=== PATIENT | female | born 1945 | race Caucasian/White ===

== ENCOUNTER 2016-09-24 07:34 | Day surgery (SDC) | payer MEDICARE, BC ==
[~2016-09-24] VITALS: Ht 172.7 cm; Wt 121.6 kg
[2016-09-24 12:49] LABS: BASOPHILS 0.8 % (0.0-2.0); EOSINOPHILS 6.1 % (0-7); HEMATOCRIT 33.2 % (36.0-48.0); HEMOGLOBIN 10.3 g/dL (12-16); IMMATURE GRANULOCYTES 0.3 % (0-5); LYMPHOCYTES 24.8 % (15-50); MCH 29.1 pg (26.0-34.0); MCV 93.8 fL (80.0-100.0); MEAN PLATELET VOLUME 9.4 fL (7.4-10.4); MONOCYTES 6.6 % (2-11); NEUTROPHILS 61.4 % (40-80); PLATELET COUNT 215 10x3/uL (130-400); RBC 3.54 10x6/uL (4.00-5.40); RDW 13.5 % (11.5-14.5); WBC 7.2 10x3/uL (4.8-10.8)
[2016-09-24 13:08] LABS: APTT 26.4 SECONDS (22.8-39.4); INR 0.99 (0.85-1.17); PROTIME 12.9 SECONDS (11.6-15.0)
[2016-09-24 13:14] LABS: CARBON DIOXIDE 23.1 mmol/L (21.0-32.0); CREATININE - SERUM 2.3 mg/dL (0.6-1.3); POTASSIUM - SERUM 5.1 mmol/L (3.5-5.1)
[2016-09-24] MEDS ORDERED: FUROSEMIDE40 MG PO (13:16)
[2016-09-24] MEDS ORDERED: ALENDRONATE SOD70 MG PO (13:16)
[2016-09-24] MEDS ORDERED: COZAAR50 MG PO (13:16)
[2016-09-24] MEDS ORDERED: VYTORIN 10-40 M1 TAB PO (13:17)
[2016-09-24] MEDS ORDERED: COREG25 MG PO (13:17)
[2016-09-24] MEDS ORDERED: NOVOLOG FLEXPEN INJ (13:17)
[2016-09-24] MEDS ORDERED: LANTUS INSULIN10 ML SC (13:18)
[2016-09-24] MEDS ORDERED: MULTIPLE VITAMI1 TA1 PO (13:19)
[2016-09-24 13:30] VITALS: BP 178/93; BMI 40.8
[2016-09-24] MEDS ORDERED: ULTRAM50 MG PO (17:48)
--- NOTE | 2016-09-24 17:54 | NUR ---
BRUIT AND THRILL NOTED TO FISTULA
[2016-09-24 18:36] VITALS: BP 111/53
--- NOTE | 2016-09-24 18:38 | NUR ---
RECEIVED VIA STRETCHER TO ROOM WITH DRY INTACT DRESSING TO LEFT ARM. ON 3L PER NC. FATHER AT BEDSIDE. DENIES NEEDS.
[2016-09-24 20:00] VITALS: BP 125/60
--- NOTE | 2016-09-24 21:01 | NUR ---
PT AWAKE, ALERT, ORIENTED, DENIES PAIN IN LEFT ARM, DENIES ANY DIZZINESS, WEAKNESS, NAUSEA, OR ANY OTHER DIFFICULTIES. PT'S B/P HAS CONSISTENTLY BEEN INCREASING THIS EVENING, PT HAS NOT HAD ANY OF HER HOME MEDICATIONS. I HAVE SPOKEN WITH TOMA WILL, GASTROENTEROLOGY PROFESSOR FOR RENAL WHO AUTHORIZED THE RESTART OF PTS HOME B/P MEDS. WILL CONTINUE TO MONITOR CLOSELY.
[2016-09-25] VITALS: BP 179/77
[2016-09-25 02:59] VITALS: BP 111/53; BMI 40.8
[2016-09-25 04:00] VITALS: BP 193/92
--- NOTE | 2016-09-25 04:24 | NUR ---
PT ACCIDENTALLY PULLED HER IV OUT OF HER RIGHT HAND EARLIER IN THIS SHIFT. I HAVE NOT RESITED PT HAS NO IV MEDICATIONS ORDERED, AND SHE WILL BE D/C THIS AM [place].
--- NOTE | 2016-09-25 05:53 | NUR ---
PT LYING IN BED ON RIGHT SIDE, EYES CLOSED, RESPIRATIONS EVEN AND UNLABORED. FATHER AT BEDSIDE. CONTINUE TO MONITOR CLOSELY.
--- NOTE | 2016-09-25 06:38 | NUR ---
PTS FSBS IS 89, GAVE APPLESAUCE AND JELLO TO COVER PT UNTIL BREAKFAST IS SERVED. PT IS AWAKE, ALERT, ORIENTED, DENIES ANY NEEDS. PT IS ANXIOUS ABOUT BEING ABLE TO GO HOME K[place]. PT DENIES ANY PAIN. CONTINUE TO MONITOR CLOSELY.
--- NOTE | 2016-09-25 07:31 | NUR ---
PT SITTING UP IN BED WITH FATHER AT BEDSIDE. PT HAD LEFT AV FISTULA PLACED YESTERDAY. NO BRUIT OR THRILL NOTED. WITH SWELLING. PRIYA VANG.
--- NOTE | 2016-09-25 07:35 | NUR ---
TALKED WITH DR POWERS SAID TO KEEP PT NPO AND HE WILL COME SEE PT.
[2016-09-25 07:43] VITALS: BP 149/60
--- NOTE | 2016-09-25 08:03 | NUR ---
SCD'S ON BILATERAL LE
[2016-09-25 10:10] VITALS: Ht 172.7 cm; Wt 121.6 kg
[2016-09-25 11:17] VITALS: BP 171/81
--- NOTE | 2016-09-25 12:06 | NUR ---
STILL NO SIGN OF DR POWERS. PT SAID THAT DR CHIN CAME AND SAW HER AND ASSESSED HER FISTULA AND SAID THAT WE WOULD WAIT TO SEE WHAT DR POWERS SAID BEFORE WE SENT HER HOME. STILL KEEPING PT NPO. PT DISCHARGE SUMMARY IS COMPLETE PER DR CHIN. PT FATHER IS BECOMING IMPATIENT. KEEPING FAMILY AND PT UPDATED MUCH POSSIBLE.
--- NOTE | 2016-09-25 13:07 | NUR ---
FAMILY UPSET THAT DR POWERS NOT HERE TO SEE HER YET. DEEPAK CALLED DR POWERS OFFICE AND SPOKE TO CELESTINE. CELESTINE SAID HE WAS WITH A PT AT THE MOMENT BUT SHE WOULD TALK TO HIM WHEN HE CAME OUT.
--- NOTE | 2016-09-25 13:23 | NUR ---
DR POWERS HERE TO SEE PT. LISTENED TO FISTULA WITH DOPPLER. SAID THERE WAS A FEBILE FLOW. GAVE OK TO DC HOME. PUT IN ORDERS. WANTS TO SEE IN OFFICE NEXT WEEK.
--- NOTE | 2016-09-25 13:43 | NUR ---
WENT OVER DC PAPERWORK WITH PT PT VERBALIZES UNDERSTANDING.
--- NOTE | 2016-09-27 10:18 | OP ---
PATIENT NAME: SHANTAL COOLEY MEDICAL RECORD: [id number] :47 LOCATION:D.OPS ADMISSION DATE: SURGEON: SUMAN POWERS MD DATE OF OPERATION: 09/24/2016 REFERRING PHYSICIAN: Dr. Nigel Bennett. PREOPERATIVE DIAGNOSIS: Chronic kidney disease V. POSTOPERATIVE DIAGNOSIS: Chronic kidney disease V. OPERATION PERFORMED: Creation of a left distal brachial artery to cephalic vein AV fistula. SURGEON: Suman Powers MD ANESTHESIA: General with LMA per SUPERVISOR LIQUEFACTION. PREOPERATIVE NOTE: Ms. Cooley is a 71-year-old obese diabetic white female from [place], who has chronic kidney disease and Dr. Bennett anticipate she will require hemodialysis. She was referred to me so that an AV fistula could be created with plenty of time for it to mature before it might be needed. She is brought to the operating room at this time to try to make a fistula in her left arm. Under general anesthesia, she was prepped and draped in sterile manner. I examined her arm with ultrasound after applying nitroglycerin paste and I used a Madhavi drain as a proximal venous tourniquet. She seemed to have a satisfactory cephalic vein in the antecubital space and upper arm. The basilic vein was smaller than I expected and I decided to go ahead with a brachial to cephalic fistula. A transverse incision was made just below the antecubital crease. The vessels were exposed and dissected branches or tributaries of the vein were ligated and divided as needed using Vicryl ties and the median antebrachial vein and median cubital vein were actually used as the conduit to the cephalic vein. The vessel was flushed with heparinized saline and treated with topical papaverine and distended with hydrostatic pressure. The vein was shortened slightly and beveled. A vascular clamp was used proximally to prevent bleeding. The brachial artery was controlled with Silastic loops and the proximal radial artery and ulnar artery were also individually controlled with Silastic loops. The vein really reached best down on the most distal brachial artery and I did not try to create a PRA type fistula. The patient was given 2000 units of heparin and after an adequate circulation time, a small arteriotomy was made and that vessel flushed with heparinized saline proximally and distally. The vein was then anastomosed end-to-side to the side of the artery with running 7-0 Prolene and when completed, the anastomosis was hemostatic and excellent flow developed immediately with release of the occluding loops and clamps. The wound was irrigated with Ancef/gentamicin solution and infiltrated with 0.25% Marcaine without epinephrine. The wound was closed with interrupted inverted 3-0 Vicryl and the skin approximated and glued with Dermabond. I did not use an intracuticular suture or any other skin sutures. The wound was dressed with Maxorb Ag, Tegaderm and Cavilon skin prep and the patient then awakened and in stable condition taken to the recovery room. Blood loss during the operation was trivial and unreplaced. All sponges, instruments and needles were accounted for. No drain was used and no surgical OPERATIVE REPORT [id number] SHANTAL COOLEY specimen was submitted for histopathology. PLAN: I will plan for the patient to leave the original operative dressing intact until she returns to see me in my office next week. She is given a prescription for 30 tramadol 50 mg tablet, she can take 1 or if needed 2 p.o. q. 4 hours p.r.n. pain. TRANSINT:[id number] Voice Confirmation ID: [id number] DOCUMENT ID: [id number] SUMAN POWERS MD at 1018 CC: GEE BENNETT MD [id number] DICTATION DATE: 09/24/16 175 SEED DISTRICT SALES MANAGER: 09/25/[address] [facility] 09/25/16 [facility] [address] [place] [address]
== END 2016-09-25 13:43 | disposition home or self-care (01) ==
LOC: D.OPS 07:34 → D.M2 18:33 → D.OPS 09-25 13:43
PROVIDERS: Internal Medicine Nephrology
DX: E11.22 Type 2 diabetes mellitus with diabetic chronic kidney disease (principal); N18.5 Chronic kidney disease, stage 5; Z79.4 Long term (current) use of insulin; E66.9 Obesity, unspecified; Z79.899 Other long term (current) drug therapy; Z68.41 Body mass index [BMI] 40.0-44.9, adult

== ENCOUNTER 2017-03-07 05:20 | Day surgery (SDC) | payer MEDICARE, BC ==
[2017-03-06 15:59] LABS: BASOPHILS 0.6 % (0-2); EOSINOPHILS 5.4 % (0-7); HEMATOCRIT 30.3 % (36.0-48.0); HEMOGLOBIN 9.6 g/dL (12-16); IMMATURE GRANULOCYTES 0.2 % (0-5); LYMPHOCYTES 20.9 % (15-50); MCHC 31.7 g/dL (31.0-37.0); MCV 94.7 fL (80.0-100.0); MEAN PLATELET VOLUME 10.3 fL (7.4-10.4); MONOCYTES 4.5 % (2-11); NEUTROPHILS 68.4 % (40-80); PLATELET COUNT 244 10x3/uL (130-400); RDW 14.6 % (11.5-14.5); WBC 8.7 10x3/uL (4.8-10.8)
[2017-03-06 16:01] LABS: ANION GAP 17.4 mmol/L (8-16); CARBON DIOXIDE 26.5 mmol/L (21.0-32.0); CREATININE - SERUM 4.6 mg/dL (0.6-1.3); POTASSIUM - SERUM 4.9 mmol/L (3.5-5.1)
[2017-03-06 16:05] LABS: INR 1.04 (0.85-1.17); PROTIME 13.5 SECONDS (11.6-15.0)
[~2017-03-07] VITALS: Ht 172.7 cm; Wt 113.4 kg
[~2017-03-07 05:20] MED LIST: ALENDRONATE SOD70 MG PO; ASPIRIN EC81 M1 PO; COREG25 MG PO; COZAAR50 MG PO; FUROSEMIDE40 MG PO; LANTUS INSULIN10 ML SC; MULTIPLE VITAMI1 TA1 PO; NOVOLOG FLEXPEN INJ; ROCALTROL0.5 MCG PO; ULTRAM50 MG PO; VYTORIN 10-40 M1 TAB PO
[2017-03-07 07:11] VITALS: Ht 172.7 cm; Wt 113.4 kg
[2017-03-07] MEDS ORDERED: HYDROCODON-ACE1 EAC7 PO (11:30)
--- NOTE | 2017-03-07 13:42 | NUR ---
1210 DC TEACHING COMPLETE LT ARM IN SLING PT STATES STARTING TO FEEL IN SHOULDER. FISTULA REMAINS COVERED W/OPSITE AND THRILL AUSCULTATED. PIV REMOVED W/CATHETER TIP INTACT. 1235 PT DC VIA WC W/DAD DRIVING.
--- NOTE | 2017-03-10 21:36 | OP ---
PATIENT NAME: SHANTAL COOLEY MEDICAL RECORD: [id number] :47 LOCATION:D.OPS ADMISSION DATE: SURGEON: SUMAN POWERS MD DATE OF OPERATION: 03/07/2017 PREOPERATIVE DIAGNOSIS: Chronic kidney disease stage V. POSTOPERATIVE DIAGNOSIS: Chronic kidney disease stage V. OPERATION PERFORMED: Implantation of a left upper extremity brachial artery to basilic vein loop PTFE AV fistula. SURGEON: Suman Powers MD. ANESTHESIA: Axillary block plus general with LMA per COMPUTER NETWORK SUPPORT SPECIALIST. REFERRING PHYSICIAN: Nigel Bennett MD. PREOPERATIVE NOTE: Ms. Cooley is a very pleasant 71-year-old white female patient with chronic kidney disease and will need to start dialysis soon. She is brought to the operating room for implantation of a graft. Under general anesthesia and with a regional block on board, the patient was placed in supine position and the left arm prepped and draped in sterile manner. I examined her with ultrasound after applying nitroglycerin paste and using a Madhavi drain as a proximal venous tourniquet. The patient did not have any adequate veins in the forearm or really in the antecubital area to construct a fistula that I would have confidence in its maturing rapidly and I went on with a graft implantation. I made an incision above the elbow and dissected the brachial artery from surrounding tissues. It was treated with topical papaverine and controlled proximally and distally with Silastic loops. Another longitudinal incision was made just below the axilla and the basilic vein at that level exposed. This was actually just lateral to its confluence with the brachial veins. It was also controlled with Silastic loops and treated with topical papaverine. Because the brachial artery was small, I chose a 4-7 tapered [place] Propaten PTFE graft. The arterial end was shortened a bit and beveled. Then, the artery was occluded and an arteriotomy made and the artery flushed proximally and distally with heparinized saline. The anastomosis was then done with running 6-0 Prolene. The suture line was treated with Evicel and after 2 minutes, the occluding loops were released and the flow restored in the brachial artery and the suture line was hemostatic with a good pulse in the graft, which was of course clamped. There was good Doppler flow in the brachial artery proximal and distal to the anastomosis. The graft was then placed in a very superficial subcutaneous tunnel and brought back to the proximal incision where it was shortened and beveled, and anastomosed end-to-side to the vein with running 6-0 Prolene, again with just regional heparinization. When that anastomosis was complete, it too was treated with topical Evicel and after 2 minutes, the clamps and loops were released, and excellent flow was immediately established in the new AV graft. Hemostasis was excellent. The wounds were irrigated with Ancef/gentamicin solution. They were closed with interrupted inverted 3-0 Vicryl and running intracuticular 4-0 Monocryl and Dermabond glue. Dressings of Maxorb Ag, Tegaderm and Cavilon skin prep were applied. She was awakened and in stable condition taken to the recovery room. Blood loss during the operation was trivial. All sponges, instruments, and OPERATIVE REPORT [id number] LENORASHANTAL DELORES needles were accounted for. No drain was used and no surgical specimen was submitted for histopathology. PLAN: I plan for Ms. Cooley to go home to [place] today. She will follow up with me in my office next week. She is to leave the original operative dressings intact until that time. She is to resume activities as tolerated. She is to continue her home medications and diet. She may wear a sling to help her control the left upper extremity until her block wears off and motor function returns. I do not want her to wear a sling more than 24 hours. She is given a prescription for Pomerene 5/325, #20 one p.o. q.4 hours p.r.n. pain, no refills. TRANSINT:[id number] Voice Confirmation ID: [id number] DOCUMENT ID: [id number] SUMAN POWERS MD at 2136 CC: GEE BENNETT MD [id number] DICTATION DATE: 03/07/17 1142 BARROW WORKER: 03/07/17 1617 [facility] 03/07/17 [place] [id number] [place] [id number]
== END 2017-03-07 12:35 | disposition home or self-care (01) ==
LOC: D.OPS 05:20 → D.PAN 07:30 → D.OPS 08:30 → D.PAN 08:30 → D.OPS 12:35
PROVIDERS: Surgery
DX: I12.0 Hypertensive chronic kidney disease with stage 5 chronic kidney disease or end stage renal disease (principal); N18.5 Chronic kidney disease, stage 5; Z01.810 Encounter for preprocedural cardiovascular examination; Z01.812 Encounter for preprocedural laboratory examination; Z01.811 Encounter for preprocedural respiratory examination

== ENCOUNTER 2019-10-21 18:32 | Emergency (ER) | payer MEDICARE, BC ==
[~2019-10-21] VITALS: Ht 172.7 cm; Wt 113.6 kg
[~2019-10-21 18:32] MED LIST changes: +HYDROCODON-ACE1 EAC7 PO
[2019-10-21 18:35] VITALS: Ht 172.7 cm; Wt 113.6 kg
[2019-10-21 19:21] LABS: WBC 28.4 10x3/uL (4.8-10.8)
[2019-10-21 19:22] LABS: HEMATOCRIT 24.9 % (36.0-48.0); HEMOGLOBIN 7.4 g/dL (12-16); MCH 33.6 pg (26.0-34.0); MCHC 29.7 g/dL (31.0-37.0); MCV 113.2 fL (80.0-100.0); MEAN PLATELET VOLUME 9.3 fL (7.4-10.4); PLATELET COUNT 275 10x3/uL (130-400); RDW 14.4 % (11.5-14.5)
[2019-10-21 19:26] LABS: CALC OSMOLALITY 294 mosm/kg (275-300); CALCIUM 7.5 mg/dL (8.5-10.1); CHLORIDE - SERUM 97 mmol/L (98-107); CREATININE - SERUM 10.8 mg/dL (0.6-1.3); GLUCOSE 186 mg/dL (74-106); POTASSIUM - SERUM 5.6 mmol/L (3.5-5.1); SODIUM 136 mmol/L (136-145); UREA NITROGEN 62 mg/dL (7-18); eGFR NON AFRICAN AMERICAN 4 mL/min (90-120)
[2019-10-21 19:40] LABS: LYMPHOCYTES 9 % (15-50); MONOCYTES 8 % (2-11); NEUTROPHILS 71 % (40-80); PLATELET ESTIMATE NORMAL
[2019-10-21 19:41] LABS: ALKALINE PHOSPHATASE 153 U/L (30-120); ALT (SGPT) 19 U/L (10-68); BILIRUBIN - TOTAL 0.49 mg/dL (0.2-1.3); CKMB 0.7 U/L (0.0-3.6); CREATINE KINASE 254 UL (21-215); MAGNESIUM - SERUM 2.1 mg/dL (1.8-2.4); PRO BNP 12286 pg/mL (0-125); PROTEIN - SERUM 6.5 g/dL (6.4-8.2); TROPONIN-I < 0.017 ng/mL (0.000-0.060)
[2019-10-21 20:40] LABS: BILIRUBIN NEGATIVE (NEGATIVE); GLUCOSE NEGATIVE (NEGATIVE); KETONE NEGATIVE (NEGATIVE); NITRITE POSITIVE (NEGATIVE); UROBILINOGEN NORMAL (NORMAL)
[2019-10-21 20:41] LABS: RED CELLS - URINE 25-50 /hpf (0-5); WHITE CELLS - URINE >50 /hpf (NEGATIVE)
[2019-10-21 20:42] LABS: BACTERIA MANY /hpf (NEGATIVE); EPITHELIAL CELLS NSEEN /hpf (0-5)
[2019-10-21 22:07] VITALS: BP 98/34
== END 2019-10-21 22:07 | disposition other institution (70) ==
LOC: D.ER 18:32
PROVIDERS: Family Medicine
DX: N12 Tubulo-interstitial nephritis, not specified as acute or chronic (principal); I12.9 Hypertensive chronic kidney disease with stage 1 through stage 4 chronic kidney disease, or unspecified chronic kidney disease; E11.22 Type 2 diabetes mellitus with diabetic chronic kidney disease; N18.9 Chronic kidney disease, unspecified; N20.1 Calculus of ureter; E11.40 Type 2 diabetes mellitus with diabetic neuropathy, unspecified; Z79.4 Long term (current) use of insulin

== ENCOUNTER 2019-11-06 12:00 | Inpatient (IN) | payer MEDICARE, BC ==
[2019-11-06] VITALS (12 sets, daily range): BP systolic 78–124; BP diastolic 46–68; BMI 35.7
[~2019-11-06] VITALS: Ht 172.7 cm; Wt 109.2 kg
--- NOTE | ~2019-11-06 | EC ---
PATIENT:SHANTAL COOLEY DATE OF SERVICE: 11/06/19 SEX: F MEDICAL RECORD: [id number] DATE OF : [birth year] LOCATION:[facility] D230 AGE OF PATIENT: 74 ADMISSION DATE: 11/06/19 REFERRING PHYSICIAN: INTERPRETING PHYSICIAN: VETO YOUNGBLOOD MD ECHOCARDIOGRAM REPORT ECHO CHARGES 4 ECHO COMPLETE Date: 11/07/19 CLINICAL DIAGNOSIS: ELEVATED TROP ECHOCARDIOGRAPHIC MEASUREMENTS (adult normal given) AC root (d.<3.7cm) 2.5 cm LV Septum d (<1.2 cm> 1.1 cm Valve Excursion 1.6 cm LV Septum (systole) 1.9 cm Left Atria (s.<4.0cm> 4.1 cm LVPW d(<1.2cm) 1.1 cm RV (d.<2.3cm) 3.0 cm LVPW (sytole) 1.2 cm LV diastole(<5.6CM) 4.5 cm MV E-F(>70mm/sec) cm LV systole 3.1 cm LVOT Diameter 1.5 cm MV exc.(>10mm) cm Est.ejection fraction (50-75%) % DOPPLER: LVIT cm/sec A 76 cm/sec E 103 cm/sec LA cm/sec RVSP 16.1 mmHg LVOT 154 cm/sec AOP1/2T m/s Asc. Ao 184 cm/sec RVOT 75 cm/sec RA cm/sec PA 103 cm/sec AV Gradient Peak 13.6 mmHg AV Mean 6.4 mmHg AV Area 1.4 cm MV Gradient Peak 7.7 mmHg MV Mean 3.9 mmHg MV Area cm COMMENTS: Automobile Upholsterer: Denis MORALES Rabble Furnace Tender: 4 Dr. Youngblood TAPE# PACS Pericardial Effusion Y DATE OF SERVICE: 11/07/2019 DATE OF STUDY: 11/07/2019. PROCEDURE: Transthoracic echocardiogram. Left ventricle has moderate to severe concentric left ventricular hypertrophy with an ejection fraction of 60% to 65% with Inflow characteristics consistent with diastolic dysfunction. ECHOCARDIOGRAM REPORT [id number] SHANTAL COOLEY FINDINGS: 1. The left atrium is mildly enlarged with normal function. 2. The aortic valve is normal structure and function. 3. The mitral valve has normal structure and function. Mild mitral regurgitation. Tricuspid valve is normal in structure and function and mild tricuspid regurgitation. The RVSP is normal. 4. The right atrium is mildly dilated and there is right ventricular hypertrophy with normal function. 5. The right atrium is normal size and function. 6. The pericardium exhibits a eeyi-ci-slhyhgts effusion. There are no signs of tamponade. IMPRESSION: Hypertensive heart disease with ztnk-oa-zxjtjpyg pericardial effusion, no evidence of tamponade. Depending on clinical situation, a limited echo for the pericardial effusion would be reasonable in 1-2 days. TRANSINT:[id number] Voice Confirmation ID: [id number] DOCUMENT ID: [id number] VETO YOUNGBLOOD MD CC: [id number] DICTATION DATE: 11/07/19 1601 AUTOMATION CONTROL INTEGRATOR: 11/07/19 210 ADM IN [facility] [address] [place] [id number]
--- NOTE | 2019-11-06 12:10 | NUR ---
BLOOD CULTURE X 2 AT [facility]. LAB WORK FROM [facility]: CR 7.9 LACTIC ACID 3.5 (NO SEPSIS SUSPECTED PER YANIQUE LARA) BUN 34 7 HGB PREVIOUS 7.6 1 WEEK AGO
[2019-11-06 13:15] LABS: BASOPHILS 0.3 % (0-2); EOSINOPHILS 0.1 % (0-7); HEMATOCRIT 24.8 % (36.0-48.0); IMMATURE GRANULOCYTES 0.1 % (0-5); LYMPHOCYTES 24.3 % (15-50); MCH 33.5 pg (26.0-34.0); MCHC 29.8 g/dL (31.0-37.0); MCV 112.2 fL (80.0-100.0); MEAN PLATELET VOLUME 9.4 fL (7.4-10.4); MONOCYTES 8.3 % (2-11); NEUTROPHILS 66.9 % (40-80); PLATELET COUNT 327 10x3/uL (130-400); RBC 2.21 10x6/uL (4.00-5.40); RDW 15.1 % (11.5-14.5); WBC 8.7 10x3/uL (4.8-10.8)
[2019-11-06 13:25] LABS: HEMOGLOBIN 7.4 g/dL (12-16)
[2019-11-06 13:34] LABS: CALC OSMOLALITY 279 mosm/kg (275-300); CALCIUM 8.1 mg/dL (8.5-10.1); CARBON DIOXIDE 27.1 mmol/L (21.0-32.0); CHLORIDE - SERUM 95 mmol/L (98-107); CREATININE - SERUM 8.1 mg/dL (0.6-1.3); GLUCOSE 191 mg/dL (74-106); POTASSIUM - SERUM 4.9 mmol/L (3.5-5.1); SODIUM 133 mmol/L (136-145); UREA NITROGEN 37 mg/dL (7-18); eGFR NON AFRICAN AMERICAN 5 mL/min (90-120)
[2019-11-06 13:37] LABS: APTT 39.3 SECONDS (22.8-39.4); INR 1.66 (0.85-1.17); PROTIME 19.4 SECONDS (11.6-15.0)
[2019-11-06 13:46] LABS: ALBUMIN 2.6 g/dL (3.4-5.0); ALKALINE PHOSPHATASE 137 U/L (30-120); ALT (SGPT) 736 U/L (10-68); BILIRUBIN - TOTAL 0.45 mg/dL (0.2-1.3); CKMB 0.9 U/L (0.0-3.6); CREATINE KINASE 47 UL (21-215); PROTEIN - SERUM 7.1 g/dL (6.4-8.2)
[2019-11-06 13:50] LABS: TROPONIN-I 0.549 ng/mL (0.000-0.060)
--- NOTE | 2019-11-06 14:56 | NUR ---
1400 PT RECIEVED AND ADMISSION ASSESMENT DONE.. PT IS AWAKE ALERT AND ORIENTED.. DENIES PAIN AT THIS TIME.. STATES THAT SHE HAS BEEN SOB AND WEAK AT HOME, SHE MISSED DIALYSIS THIS AM IN [place] .. DIALYSIS WAITING FOR HER AT BEDSIDE ON ARRIVAL TO DIALIZE.. PT HAS A FISTULA IN HER RIGHT UPPER ARM.. THERE IS A LEFT PIV IN THE WRIST SALINE LOCKED .. 1500 ASSESMENT IS COMPLETE AND DIALYSIS STARTED.. DIALYSIS UNIT IN [place] CALLED TO FAX LIST OF PATIENTS HOME MEDS..
--- NOTE | 2019-11-06 15:47 | NUR ---
1515 PRBC STARTED WHILE ON DIALYSIS AND RUN IN BY DIALYSIS NURSE.. 1530 [facility] CALLED AGAIN TO FAX PT MED LIST
--- NOTE | 2019-11-06 18:18 | NUR ---
1820 DIALYSIS COMPLETESEE DIALYSIS FLOW SHEET FOR VS. ETC..
--- NOTE | 2019-11-06 18:24 | NUR ---
BLOOD DRAWN FOR ORDERED LAB BY DIALYSIS NURSE FROM FISTULA SITE
--- NOTE | 2019-11-06 19:00 | NUR ---
REPORT RECEIVED ASSESSMENT COMPLETE. PT DENIES PAIN OR SOB STATES "I FEEL SO MUCH BETTER" CM READING SR BBB ALARMS ON AND AUDIBLE. BED LOW POSITION SIDE RAILS UP CL IN REACH WILL CONTINUE TO MONITOR
[2019-11-06 20:24] LABS: CKMB 0.5 U/L (0.0-3.6); CREATINE KINASE 41 UL (21-215)
[2019-11-06 20:30] LABS: TROPONIN-I 0.413 ng/mL (0.000-0.060)
--- NOTE | 2019-11-06 21:25 | NUR ---
DR ELIAS HERE NEW ORDERS OK TO HOLD LANTUS UNTIL TOMORROW TREAT PER SS
--- NOTE | 2019-11-06 23:00 | NUR ---
REASSESSMENT COMPLETE NO CHANGES.
[2019-11-07] VITALS (24 sets, daily range): BP systolic 78–106; BP diastolic 37–84
--- NOTE | 2019-11-07 01:30 | NUR ---
PT RESTING QUIETLY WITH EYES CLOSED VSS CPOC
[2019-11-07] MEDS ORDERED: ELIQUIS2.5 MG PO (01:31)
[2019-11-07] MEDS ORDERED: RENVELA0.8 GM PO (01:32)
[2019-11-07] MEDS ORDERED: TUMS X-STR300 MG PO (01:33)
[2019-11-07] MEDS ORDERED: NEPHRO-VITE RX1 TAB PO (01:34)
[2019-11-07] MEDS ORDERED: PLAVIX75 MG PO (01:35)
--- NOTE | 2019-11-07 03:00 | NUR ---
REASSESSMENT COMPLETE. PT DENIES NEEDS CPOC.
[2019-11-07 03:30] LABS: BASOPHILS 0.7 % (0-2); EOSINOPHILS 0.8 % (0-7); HEMATOCRIT 26.4 % (36.0-48.0); HEMOGLOBIN 7.9 g/dL (12-16); IMMATURE GRANULOCYTES 0.2 % (0-5); LYMPHOCYTES 23.8 % (15-50); MCH 32.4 pg (26.0-34.0); MCHC 29.9 g/dL (31.0-37.0); MCV 108.2 fL (80.0-100.0); MEAN PLATELET VOLUME 9.6 fL (7.4-10.4); NEUTROPHILS 64.5 % (40-80); PLATELET COUNT 331 10x3/uL (130-400); RBC 2.44 10x6/uL (4.00-5.40); RDW 19.1 % (11.5-14.5); WBC 8.5 10x3/uL (4.8-10.8)
[2019-11-07 04:06] LABS: ALBUMIN 2.4 g/dL (3.4-5.0); ALKALINE PHOSPHATASE 122 U/L (30-120); ALT (SGPT) 604 U/L (10-68); BILIRUBIN - TOTAL 0.64 mg/dL (0.2-1.3); CALCIUM 8.1 mg/dL (8.5-10.1); CARBON DIOXIDE 29.3 mmol/L (21.0-32.0); CHLORIDE - SERUM 98 mmol/L (98-107); CKMB 0.4 U/L (0.0-3.6); CREATINE KINASE 32 UL (21-215); CREATININE - SERUM 6.1 mg/dL (0.6-1.3); GLUCOSE 170 mg/dL (74-106); PHOSPHOROUS 6.2 mg/dL (2.5-4.9); PROTEIN - SERUM 6.6 g/dL (6.4-8.2); SODIUM 136 mmol/L (136-145); eGFR NON AFRICAN AMERICAN 7 mL/min (90-120)
[2019-11-07 04:07] LABS: CALC OSMOLALITY 280 mosm/kg (275-300); TROPONIN-I 0.301 ng/mL (0.000-0.060); UREA NITROGEN 27 mg/dL (7-18)
[2019-11-07 08:23] LABS: CKMB 0.4 U/L (0.0-3.6); CREATINE KINASE 29 UL (21-215)
[2019-11-07 08:24] LABS: TROPONIN-I 0.249 ng/mL (0.000-0.060)
--- NOTE | 2019-11-07 10:07 | NUR ---
0700 REPORT RECIEVED AND CARE ASSUMED OF PATIENT..SEE FLOW SHEET FOR ASSESMENT FINDINGS 0800 RENAL SELF SEALING FUEL TANK BUILDER IN TO SEE PATIENT.. 0830 DIET SERVED AND PATIENT IS FEEDING SELF [address] ELIAS IN TO SEE PT UPDATE IS GIVEN..
--- NOTE | 2019-11-07 10:14 | NUR ---
DR YOUNGBLOOD NOTIFIED OF CONSULT, STATED TO ORDER AN ECHO AND HE WILL BE BY TO SEE PT.
--- NOTE | 2019-11-07 12:18 | NUR ---
1100 PT IS SLEEPING AT THIS TIME.. 1200 FSBS DONE INSULIN COVER LUNCH SERVED FEEDING SELF..
--- NOTE | 2019-11-07 13:09 | NUR ---
1300 US HERE TO DO ECHO
--- NOTE | 2019-11-07 14:35 | NUR ---
1400 US COMPLETE TECH ATTEMPTING TO CONTACT DR DRUMMOND.. PT IS SLEEPING
--- NOTE | 2019-11-07 14:49 | NUR ---
1445 BP LOW PATIENT STATES IT IS ALWAYS LOW..CUFF REPOSITIONED AND PT REPOSITIONED IN THE BED.. BP 101 SYS.. REFUSES BATH AT THIS TIME..
--- NOTE | 2019-11-07 15:02 | NUR ---
1500 PT REFUSES BATH AT THIS TIME.. I AND O DONE
--- NOTE | 2019-11-07 17:48 | NUR ---
1630 MEDS GIVEN AND FSBS DONE 2 UNITS INSULIN COVER 1700 DIET SERVED AND PT IS FEEDING SELF.. 1730 CONTINUES TO FEED SELF
--- NOTE | 2019-11-07 19:00 | NUR ---
Report received from off going nurse. Pt is sitting up in bed with eyes closed. No needs voiced at this time. Initial assessment completed, see flowsheet for details. No s/s of distress noted. Will continue to monitor.
--- NOTE | 2019-11-07 21:00 | NUR ---
Pt is laying in bed with eyes closed. No needs voiced at this time. No s/s of distress. Will continue to monitor.
--- NOTE | 2019-11-07 23:00 | NUR ---
Reassessment completed, see flowsheet for details. Pt is laying in bed with eyes closed at this time. No needs voiced. No s/s of distress. Will continue to monitor.
[2019-11-08] VITALS (21 sets, daily range): BP systolic 87–1331; BP diastolic 49–81; Ht 172.7 cm; Wt 109.2 kg
--- NOTE | 2019-11-08 01:00 | NUR ---
Pt is laying in bed with eyes closed. No needs voiced. NO s/s of distress. Will continue to monitor.
--- NOTE | 2019-11-08 03:00 | NUR ---
Reassessment completed, see flowsheet for details. Pt is laying in bed with eyes closed. No needs voiced. No s/s of distress noted. Will continue to monitor.
[2019-11-08 03:58] LABS: BASOPHILS 0.9 % (0-2); EOSINOPHILS 2.1 % (0-7); HEMATOCRIT 24.1 % (36.0-48.0); IMMATURE GRANULOCYTES 0.3 % (0-5); LYMPHOCYTES 30.4 % (15-50); MCH 32.3 pg (26.0-34.0); MCHC 30.3 g/dL (31.0-37.0); MCV 106.6 fL (80.0-100.0); MEAN PLATELET VOLUME 9.5 fL (7.4-10.4); MONOCYTES 11.6 % (2-11); NEUTROPHILS 54.7 % (40-80); PLATELET COUNT 303 10x3/uL (130-400); RBC 2.26 10x6/uL (4.00-5.40)
[2019-11-08 04:01] LABS: HEMOGLOBIN 7.3 g/dL (12-16)
[2019-11-08 04:04] LABS: ANION GAP 13.4 mmol/L (8-16); CALCIUM 8.3 mg/dL (8.5-10.1); CARBON DIOXIDE 28.6 mmol/L (21.0-32.0); PHOSPHOROUS 6.4 mg/dL (2.5-4.9)
--- NOTE | 2019-11-08 07:00 | NUR ---
0700 AWAKE ALERT ASSESSMENT COMPLETE REPOSITIONED IN BED
[2019-11-08 07:45] LABS: % SATURATION 24 % (15-55); IRON 42 ug/dl (35-150); TOTAL IRON BIND CAPACITY 173 ug/dl (260-445); UNSAT IRON BIND CAPACITY 131 ug/dl (150-375)
[2019-11-08 08:16] LABS: AMYLASE - SERUM 42 U/L (25-115); LIPASE 293 U/L (73-393); VANCOMYCIN - RANDOM 9.7 ug/mL (10.0-20.0)
[2019-11-08 08:21] LABS: FERRITIN 5173 ng/mL (3-244)
--- NOTE | 2019-11-08 10:22 | NUR ---
4592 DR ELIAS ROUNDING ON PATIENT ORDER TO TRANSFUSE I UNIT PRBC NOTED
--- NOTE | 2019-11-08 10:23 | NUR ---
0900 STARTED PRBC TO RIGHT WRIST IV SITE
--- NOTE | 2019-11-08 10:24 | NUR ---
1000 IV SITE THAT HAS BLOOD INFUSING IS LEAKING. STOPPED TRANSFUSION AND RESTARTED IV TO RIGHT HAND WITH 20 GAUGE ANGIOCATH. BLOOD INFUSION RESTARTED TO NEW IV SITE LEFT ARM RESERVED NOTED
--- NOTE | 2019-11-08 10:28 | NUR ---
1016 PRESSER ALL AROUND PRESENT FOR ABDOMINAL ULTRA SOUND. PT HAS REMAINED NPO SINCE MIDNIGHT HELD BREAKFAST TRAY THIS AM
--- NOTE | 2019-11-08 10:29 | NUR ---
1029 DR FOSTER AT BEDSIDE
--- NOTE | 2019-11-08 17:33 | NUR ---
1200 DIALYSIS INITIATED UNIT PRBC COMPLETED
--- NOTE | 2019-11-08 17:35 | NUR ---
1400 DIALYSIS COMPLETE PULLED OFF 2L
--- NOTE | 2019-11-08 17:35 | NUR ---
1700 AWAKE ALERT SITTING IN BED HAVING DINNER VOICES NO C/O PAIN
--- NOTE | 2019-11-08 19:00 | NUR ---
Report received from off going nurse. Pt is sitting up in bed watching tv at this time. Asked pt about getting a bath and she stated she didnt feel like it at this time. I asked if I could at least change her sheets for her and she said yes. Sheets changed. No further needs needed at this time. No s/s of distress. Will continue to monitor.
--- NOTE | 2019-11-08 20:15 | MORECARE ---
CASE MANAGEMENT DISCHARGE SUMMARY PATIENT: SHANTAL COOLEY UNIT: [id number] ADM DATE: 11/06/19 AGE: 74 : 47 SEX: F ROOM/BED: D.2301 AUTHOR: JOSH LILLY PHYSICIAN: REFERRING PHYSICIAN: CARLITOS ELIAS MD DATE OF SERVICE: 11/08/19 Discharge Plan Patient Name: SHANTAL COOLEY [facility] : 1945 Planned Disposition: Home Anticipated Discharge Date: Discharge Date: Expected LOS: Initial Reviewer: [email or web address] Initial Review Date: 11/06/2019 Generated: 11/08/19 9:15 pm Patient Name: SHANTAL COOLEY Page [id number] at 2014 All edits/amendments must be made on the electronic document DICTATION DATE: 11/08/192014 NATURAL SCIENCES MANAGER: JEFF 11/08/192014 RPT#: [id number] DC DATE: STATUS: ADM IN [facility] [address] [place] [address] END OF REPORT
--- NOTE | 2019-11-08 20:22 | MORECARE ---
CASE MANAGEMENT DISCHARGE SUMMARY PATIENT: SHANTAL COOLEY UNIT: [id number] ADM DATE: 11/06/19 AGE: 74 : 47 SEX: F ROOM/BED: D.2301 AUTHOR: JOSH LILLY PHYSICIAN: REFERRING PHYSICIAN: CARLITOS DURAN MD DATE OF SERVICE: 11/08/19 Discharge Plan Patient Name: SHANTAL COOLEY Facility: [facility]:[place] : 1945 Planned Disposition: Home Anticipated Discharge Date: Discharge Date: Expected LOS: Initial Reviewer: [email or web address] Initial Review Date: 11/06/2019 Generated: 11/08/19 9:21 pm Comments DCP- Discharge Planning Updated by [email or web address]: Amanda Villarreal on 11/08/19 7:[address] Patient Name: SHANTAL COOLEY Admission Status: ER Accout number: [id number] Admission Date: 11-06-2019 : 1945 Admission Diagnosis: Attending: Carlitos Duran Current LOS: 2 Anticipated DC Date: Planned Disposition: Home Primary Insurance: MEDICARE A & B Discharge Planning Comments: CM met with patient to complete initial dc planning assessment. CM educated patient on the CM role and verbal consent given by patient to complete assessment. Patient lives at home alone. At discharge patient plans to return home and feels this is a safe discharge. Patient has dialysis [facility] in [place] @ 0700. Shelia Cornelius has been notified of patient's admission. CM discussed availability of home health, rehab services, and medical equipment. Patient denied known discharge needs at this time. CM will continue to follow and will assist as needed with dc plans/needs. Cattle Dehorner: Amanda Villarreal DCPIA - Discharge Planning Initial Assessment Updated by [email or web address]: Amanda Villarreal on 11/08/19 8:16 pm * Is the patient Alert and Oriented? Yes * How many steps to enter\exit or inside your home? * PCP JUAN WALKER * Pharmacy [facility] * Preadmission Environment Home Alone * ADLs Independent * Equipment None * List name and contact numbers for known caregivers / representatives who currently or will assist patient after discharge: TIKI COOLEY - FATHER - [phone] * Verbal permission to speak to the caregivers and representatives has been obtained from the patient. Yes * Community resources currently utilized None * Additional services required to return to the preadmission environment? No * Can the patient safely return to the preadmission environment? Yes * Has this patient been hospitalized within the prior 30 days at any hospital? Yes Last DP export: 11/08/19 7:15 pm Patient Name: SHANTAL COOLEY Page [id number] at 2021 All edits/amendments must be made on the electronic document DICTATION DATE: 11/08/192020 DIRECTOR CRITICAL CARE: JEFF 11/08/192020 RPT#: [id number] DC DATE: STATUS: ADM IN [facility] [address] [place] [address] END OF REPORT
--- NOTE | 2019-11-08 21:00 | NUR ---
Pt is laying in bed with eyes closed. No needs voiced at this time. No s/s of distress. Will continue to monitor.
--- NOTE | 2019-11-08 23:00 | NUR ---
Reassessment completed, see flowsheet for details. Pt is laying in bed with eyes closed. No further needs noted. No s/s of distress. Will continue to monitor.
[2019-11-09] VITALS (10 sets, daily range): BP systolic 82–123; BP diastolic 44–77
--- NOTE | 2019-11-09 01:00 | NUR ---
Pt is laying in bed with eyes closed. No needs noted at this time. No s/s of distress. Will continue to monitor.
--- NOTE | 2019-11-09 03:00 | NUR ---
Reassessment completed, see flowsheet for details. Pt is laying in bed with eyes closed. No needs voiced. No s/s of distress. Will continue to monitor.
[2019-11-09 04:21] LABS: BASOPHILS 0.9 % (0-2); EOSINOPHILS 2.7 % (0-7); HEMATOCRIT 26.8 % (36.0-48.0); HEMOGLOBIN 8.2 g/dL (12-16); IMMATURE GRANULOCYTES 0.4 % (0-5); LYMPHOCYTES 27.1 % (15-50); MCH 32.3 pg (26.0-34.0); MCHC 30.6 g/dL (31.0-37.0); MCV 105.5 fL (80.0-100.0); MEAN PLATELET VOLUME 9.6 fL (7.4-10.4); NEUTROPHILS 56.9 % (40-80); PLATELET COUNT 282 10x3/uL (130-400); RBC 2.54 10x6/uL (4.00-5.40); RDW 19.1 % (11.5-14.5); WBC 7.8 10x3/uL (4.8-10.8)
[2019-11-09 04:28] LABS: ALBUMIN 2.2 g/dL (3.4-5.0); BILIRUBIN - DIRECT 0.22 mg/dL (0.00-0.30); BILIRUBIN - INDIRECT 0.27 mg/dL (0.00-1.00); BILIRUBIN - TOTAL 0.49 mg/dL (0.2-1.3); CALCIUM 8.3 mg/dL (8.5-10.1); CARBON DIOXIDE 30.9 mmol/L (21.0-32.0); CREATININE - SERUM 7.5 mg/dL (0.6-1.3); PHOSPHOROUS 5.3 mg/dL (2.5-4.9); POTASSIUM - SERUM 3.9 mmol/L (3.5-5.1); PROTEIN - SERUM 6.2 g/dL (6.4-8.2); THYROID STIMULATING HORMONE 1.27 uIU/mL (0.36-3.74); VANCOMYCIN - RANDOM 20.8 ug/mL (10.0-20.0)
[2019-11-09 07:10] LABS: HEPATITIS C ANTIBODY <0.1 S/CO RAT (0.0-0.9)
--- NOTE | 2019-11-09 08:55 | NUR ---
GI LAB DONE
--- NOTE | 2019-11-09 08:57 | NUR ---
0730- MORNING MEDS AND BREAKFAST PROVIDED. WILL CONTINUE TO MONITOR
--- NOTE | 2019-11-09 12:36 | NUR ---
called report to félix
--- NOTE | 2019-11-09 13:48 | NUR ---
DILAYSIS AT BEDSIDE. VP TREASURER STATED 1 MORE HOUR
--- NOTE | 2019-11-09 13:48 | NUR ---
PATIENT IS ANURIC AND CANNOT OBTAIN URINE ANALYSIS
--- NOTE | 2019-11-09 20:00 | NUR ---
REPORT RECIEVED, WILL CONTINUE POC. PATIENT IS AAOX4, LYING IN SEMI-FOWLERS POSITION. PATIENT IS RESTING WITH EYES CLOSED, RR EVEN AND UNLABORED ON ROOM AIR. PIV TO RT HAND, SL. PATIENT DENIES NEEDS AT THIS TIME. CL IN REACH, BED LOCKED AND LOWERED. WILL CTM.
[2019-11-10] VITALS: BP 124/56
[2019-11-10 04:00] VITALS: BP 103/43
[2019-11-10 04:07] LABS: HEPATITIS BE ANTIGEN Negative (Negative)
[2019-11-10 06:46] LABS: BASOPHILS 1.3 % (0-2); EOSINOPHILS 4.4 % (0-7); HEMATOCRIT 27.6 % (36.0-48.0); IMMATURE GRANULOCYTES 0.1 % (0-5); LYMPHOCYTES 36.8 % (15-50); MCH 31.4 pg (26.0-34.0); MEAN PLATELET VOLUME 9.7 fL (7.4-10.4); MONOCYTES 10.4 % (2-11); PLATELET COUNT 271 10x3/uL (130-400); RBC 2.55 10x6/uL (4.00-5.40); RDW 18.7 % (11.5-14.5); WBC 6.8 10x3/uL (4.8-10.8)
[2019-11-10 06:48] LABS: MCV 108.2 fL (80.0-100.0)
[2019-11-10 06:56] LABS: ANION GAP 11.7 mmol/L (8-16); CALCIUM 8.6 mg/dL (8.5-10.1); CARBON DIOXIDE 28.8 mmol/L (21.0-32.0); CREATININE - SERUM 6.3 mg/dL (0.6-1.3); PHOSPHOROUS 4.2 mg/dL (2.5-4.9); VANCOMYCIN - RANDOM 23.7 ug/mL (10.0-20.0)
[2019-11-10 06:57] LABS: POTASSIUM - SERUM 4.5 mmol/L (3.5-5.1)
[2019-11-10] MEDS ORDERED: MIDODRINE HCL5 MG PO (07:44)
--- NOTE | 2019-11-10 08:02 | NUR ---
PT ANXIOUS TO GET HOME, INQUIRED ON WHEN WOULD BE DC, EXPLAINED TO PT AFTER UNIT OF BLOOD ADMINISTERED PT WOULD BE ABLE TO GO HOME, AWAITING LAB TO CALL TO SAY BLOOD IS READY, NO OTHER NEEDS AT THIS TIME, CONTINUE WITH PLAN OF CARE
[2019-11-10 08:11] VITALS: BP 108/51
--- NOTE | 2019-11-10 10:13 | NUR ---
ASSISTED PT TO RESTROOM, NO OTHER NEEDS VOICED, PT WAS ABLE TO ABULATE WITH MINIMAL ASSISTANCE. CONTINUE WITH PLAN OF CARE
--- NOTE | 2019-11-10 10:23 | MORECARE ---
CASE MANAGEMENT DISCHARGE SUMMARY PATIENT: SHANTAL COOLEY UNIT: [id number] ADM DATE: 11/06/19 AGE: 74 : 47 SEX: F ROOM/BED: D.3906 AUTHOR: JOSH LILLY PHYSICIAN: REFERRING PHYSICIAN: CARLITOS DURAN MD DATE OF SERVICE: 11/10/19 Discharge Plan Patient Name: SHANTAL COOLEY Facility: [facility]:[place] : 1945 Planned Disposition: Home Anticipated Discharge Date: Discharge Date: Expected LOS: Initial Reviewer: [email or web address] Initial Review Date: 11/06/2019 Generated: 11/10/19 11:22 am DCP- Discharge Planning Updated by [email or web address]: Amanda Villarreal on 11/08/19 7:[address] Patient Name: SHANTAL COOLEY Admission Status: ER Accout number: [id number] Admission Date: 11-06-2019 : 1945 Admission Diagnosis: Attending: Carlitos Duran Current LOS: 2 Anticipated DC Date: Planned Disposition: Home Primary Insurance: MEDICARE A & B Discharge Planning Comments: CM met with patient to complete initial dc planning assessment. CM educated patient on the CM role and verbal consent given by patient to complete assessment. Patient lives at home alone. At discharge patient plans to return home and feels this is a safe discharge. Patient has dialysis [facility] in [place] @ 0700. Shelia Cornelius has been notified of patient's admission. CM discussed availability of home health, rehab services, and medical equipment. Patient denied known discharge needs at this time. CM will continue to follow and will assist as needed with dc plans/needs. Merry Go Round Operator: Amanda Villarreal DCPIA - Discharge Planning Initial Assessment Updated by [email or web address]: Amanda Villarreal on 11/08/19 8:16 pm * Is the patient Alert and Oriented? Yes * How many steps to enter\exit or inside your home? * PCP JUAN WALKER * Pharmacy [facility] * Preadmission Environment Home Alone * ADLs Independent * Equipment None * List name and contact numbers for known caregivers / representatives who currently or will assist patient after discharge: TIKI COOLEY - FATHER - [phone] * Verbal permission to speak to the caregivers and representatives has been obtained from the patient. Yes * Community resources currently utilized None * Additional services required to return to the preadmission environment? No * Can the patient safely return to the preadmission environment? Yes * Has this patient been hospitalized within the prior 30 days at any hospital? Yes Last DP export: 11/08/19 7:21 pm Patient Name: SHANTAL COOLEY Page 34871 at 1023 All edits/amendments must be made on the electronic document DICTATION DATE: 11/10/19 1022 X RAY PHYSICIAN: JEFF 11/10/19 1022 RPT#: [id number] DC DATE: STATUS: ADM IN [facility] [address] [place] [address] END OF REPORT
[2019-11-10 11:58] VITALS: BP 127/50
--- NOTE | 2019-11-10 11:59 | NUR ---
STARTED PT BLOOD AT 1030, PT IS SITTING UP IN BED, NO S/SX OF DISTRESS, VSS, NO NEEDS VOICED, CONTINUE WITH PLAN OF CARE
[2019-11-10 12:08] LABS: HEPATITIS BE ANTIBODY Negative (Negative)
--- NOTE | 2019-11-10 14:39 | NUR ---
WENT OVER PT DC PAPERWORK WELL FOLLOW IP APPOINTMENTS, ALL QUESTIONS ANSWERED, PT TAKEN DOWN BY FRANKY CHANEL VIA WC, FAMILY MEMBER WAITING OUT FRONT.
--- NOTE | 2019-11-10 17:30 | MORECARE ---
CASE MANAGEMENT DISCHARGE SUMMARY PATIENT: SHANTAL COOLEY UNIT: [id number] ADM DATE: 11/06/19 AGE: 74 : 47 SEX: F ROOM/BED: D.6758 AUTHOR: JOSH LILLY PHYSICIAN: REFERRING PHYSICIAN: CARLITOS DURAN MD DATE OF SERVICE: 11/10/19 Discharge Plan Patient Name: SHANTAL COOLEY Facility: [facility]:[place] : 1945 Planned Disposition: Home Anticipated Discharge Date: Discharge Date: 11/10/2019 Expected LOS: Initial Reviewer: [email or web address] Initial Review Date: 11/06/2019 Generated: 11/10/19 6:30 pm Comments DCP- Discharge Planning Updated by [email or web address]: Ángela Benson on 11/10/19 4:[address] Patient Name: SHANTAL COOLEY Encounter No: [id number] : 1945 Primary Insurance: MEDICARE A & B Anticipated DC Date: Planned Disposition: Home External Planned Provider: : DCP follow-up note: At discharge patient plans to return home and feels this is a safe discharge. Patient has dialysis [facility] in [place] @ 0700. Shelia Cornelius has been notified of patient's admission. CM discussed availability of home health, rehab services, and medical equipment. Patient denied known discharge needs at this time. DC IMM delivered, explained, signed by the patient, and placed in his chart. Signed form also left with patient. ÁNGELA BENSON MSN,RN,CM DCP- Discharge Planning Updated by [id number]: Amanda Villarreal on 11/08/19 7:[address] Patient Name: SHANTAL COOLEY Admission Status: ER Accout number: [id number] Admission Date: 11-06-2019 : 1945 Admission Diagnosis: Attending: Carlitos Duran Current LOS: 2 Anticipated DC Date: Planned Disposition: Home Primary Insurance: MEDICARE A & B Discharge Planning Comments: CM met with patient to complete initial dc planning assessment. CM educated patient on the CM role and verbal consent given by patient to complete assessment. Patient lives at home alone. At discharge patient plans to return home and feels this is a safe discharge. Patient has dialysis [facility] in [place] @ 0700. Shelia Cornelius has been notified of patient's admission. CM discussed availability of home health, rehab services, and medical equipment. Patient denied known discharge needs at this time. CM will continue to follow and will assist as needed with dc plans/needs. Tank Riveter: Amanda Phil DCPIA - Discharge Planning Initial Assessment Updated by [email or web address]: Amanda Villarreal on 11/08/19 8:16 pm * Is the patient Alert and Oriented? Yes * How many steps to enter\exit or inside your home? * PCP JUAN WALKER * Pharmacy [facility] * Preadmission Environment Home Alone * ADLs Independent * Equipment None * List name and contact numbers for known caregivers / representatives who currently or will assist patient after discharge: ITKI COOLEY - FATHER - [phone] * Verbal permission to speak to the caregivers and representatives has been obtained from the patient. Yes * Community resources currently utilized None * Additional services required to return to the preadmission environment? No * Can the patient safely return to the preadmission environment? Yes * Has this patient been hospitalized within the prior 30 days at any hospital? Yes Last DP export: 11/10/19 9:23 am Patient Name: SHANTAL COOLEY Page [id number] at 1730 All edits/amendments must be made on the electronic document DICTATION DATE: 11/10/191729 SEO EXECUTIVE: JEFF 11/10/191729 RPT#: [id number] DC DATE:11/10/19 STATUS: DIS IN [facility] [address] [place] [address] END OF REPORT
== END 2019-11-10 14:45 | disposition home or self-care (01) | DRG 871 ==
LOC: D.ER 12:00 → D.ICU 13:04 → D.M2 11-09 12:36
PROVIDERS: Family Medicine; ADMIT Internal Medicine Nephrology; ATTEND Internal Medicine Nephrology
PROC: 5A1D70Z Performance of Urinary Filtration, Intermittent, Less than 6 Hours Per Day (ICD-10-PCS; principal; 2019-11-06)
DX: A41.9 Sepsis, unspecified organism (principal); N18.6 End stage renal disease; I12.0 Hypertensive chronic kidney disease with stage 5 chronic kidney disease or end stage renal disease; E11.22 Type 2 diabetes mellitus with diabetic chronic kidney disease; Z99.2 Dependence on renal dialysis; G89.4 Chronic pain syndrome; D63.1 Anemia in chronic kidney disease; E11.40 Type 2 diabetes mellitus with diabetic neuropathy, unspecified; E66.9 Obesity, unspecified; Z68.37 Body mass index [BMI] 37.0-37.9, adult

== ENCOUNTER 2019-11-16 12:07 | Inpatient (IN) | payer MEDICARE, BC ==
[~2019-11-16] VITALS: Ht 172.7 cm; Wt 113.6 kg
[~2019-11-16 12:07] MED LIST changes: +ELIQUIS2.5 MG PO; +MIDODRINE HCL5 MG PO; +NEPHRO-VITE RX1 TAB PO; +PLAVIX75 MG PO; +RENVELA0.8 GM PO; +TUMS X-STR300 MG PO
[2019-11-16 13:20] LABS: BASOPHILS 0.5 % (0-2); EOSINOPHILS 0.4 % (0-7); HEMATOCRIT 35.3 % (36.0-48.0); HEMOGLOBIN 10.6 g/dL (12-16); IMMATURE GRANULOCYTES 0.2 % (0-5); LYMPHOCYTES 31.6 % (15-50); MCH 31.4 pg (26.0-34.0); MCV 104.4 fL (80.0-100.0); MEAN PLATELET VOLUME 9.3 fL (7.4-10.4); MONOCYTES 6.8 % (2-11); NEUTROPHILS 60.5 % (40-80); PLATELET COUNT 272 10x3/uL (130-400); RBC 3.38 10x6/uL (4.00-5.40); RDW 17.2 % (11.5-14.5); WBC 5.7 10x3/uL (4.8-10.8)
[2019-11-16 13:37] LABS: ANION GAP 19.3 mmol/L (8-16); CARBON DIOXIDE 25.2 mmol/L (21.0-32.0); POTASSIUM - SERUM 4.5 mmol/L (3.5-5.1)
[2019-11-16 14:08] VITALS: BP 152/65
[2019-11-16 16:48] VITALS: BP 143/65; BMI 35.0
--- NOTE | 2019-11-16 19:40 | NUR ---
REPORT RECEIVED, WILL CONTINUE POC. PATIENT IS AAOX4, LYING ON LEFT SIDE. NO S/S OF DISTRESS OBSERVED, RR EVEN AND UNLABORED ON ROOM AIR. PIV TO RT AC, SL. PATIENT DENIES NEEDS AT THIS TIME. CL IN REACH, BED LOCKED AND LOWERED. WILL CTM.
[2019-11-16 21:12] VITALS: BP 121/42
[2019-11-16 23:58] VITALS: BP 121/40
--- NOTE | 2019-11-17 | NUR ---
PATIENT RESTING WITH EYES CLOSED. NO S/S OF DISTRESS OBSERVED, RR EVEN AND UNLABORED.
[2019-11-17 05:17] VITALS: BP 144/52
[2019-11-17 06:18] LABS: BASOPHILS 0.3 % (0-2); EOSINOPHILS 2.2 % (0-7); HEMATOCRIT 33.3 % (36.0-48.0); HEMOGLOBIN 9.9 g/dL (12-16); IMMATURE GRANULOCYTES 0.2 % (0-5); LYMPHOCYTES 31.8 % (15-50); MCH 30.6 pg (26.0-34.0); MCHC 29.7 g/dL (31.0-37.0); MCV 102.8 fL (80.0-100.0); MEAN PLATELET VOLUME 9.2 fL (7.4-10.4); NEUTROPHILS 56.5 % (40-80); PLATELET COUNT 319 10x3/uL (130-400); RBC 3.24 10x6/uL (4.00-5.40); RDW 17.2 % (11.5-14.5); WBC 6.4 10x3/uL (4.8-10.8)
--- NOTE | 2019-11-17 06:31 | NUR ---
FSBS 151, 2 UNITS HUMULIN ADMINISTERED TO RT ARM.
[2019-11-17 06:59] LABS: ALBUMIN 2.4 g/dL (3.4-5.0); ANION GAP 13.5 mmol/L (8-16); BILIRUBIN - TOTAL 0.49 mg/dL (0.2-1.3); CALCIUM 7.8 mg/dL (8.5-10.1); CARBON DIOXIDE 27.5 mmol/L (21.0-32.0); CREATININE - SERUM 9.3 mg/dL (0.6-1.3); PROTEIN - SERUM 5.8 g/dL (6.4-8.2)
[2019-11-17 08:59] LABS: BASOPHILS 0.5 % (0-2); EOSINOPHILS 2.1 % (0-7); HEMATOCRIT 33.5 % (36.0-48.0); HEMOGLOBIN 10.1 g/dL (12-16); IMMATURE GRANULOCYTES 0.3 % (0-5); LYMPHOCYTES 35.8 % (15-50); MCHC 30.1 g/dL (31.0-37.0); MCV 102.8 fL (80.0-100.0); MEAN PLATELET VOLUME 8.8 fL (7.4-10.4); MONOCYTES 10.2 % (2-11); NEUTROPHILS 51.1 % (40-80); PLATELET COUNT 257 10x3/uL (130-400); RBC 3.26 10x6/uL (4.00-5.40); RDW 17.2 % (11.5-14.5); WBC 5.8 10x3/uL (4.8-10.8)
[2019-11-17 09:27] VITALS: BP 159/67
--- NOTE | 2019-11-17 09:57 | NUR ---
RECIEVED REPORT. PATIENT IS ALERT AND AWAKE. SHE IS ASKING IF SHE IS GOING TO DIALYSIS TODAY. SHE SAID SHE HAS NOT HAD DIALYSIS FOR THREE DAYS. WILL WATCH FOR ORDERS AND CALL AND INQUIRE IF NONE APPEAR.
[2019-11-17 11:10] VITALS: Ht 172.7 cm; Wt 113.6 kg
[2019-11-17 11:22] LABS: BILIRUBIN NEGATIVE (NEGATIVE); GLUCOSE 50 mg/dL (NEGATIVE); KETONE NEGATIVE (NEGATIVE); NITRITE NEGATIVE (NEGATIVE); SPECIFIC GRAVITY 1.015 (1.005-1.020); UROBILINOGEN NORMAL (NORMAL)
[2019-11-17 11:27] LABS: EPITHELIAL CELLS 0-5 /hpf (0-5); RED CELLS - URINE 0-5 /hpf (0-5); WHITE CELLS - URINE 25-50 /hpf (NEGATIVE)
[2019-11-17 11:28] LABS: BACTERIA MODERATE /hpf (NEGATIVE)
--- NOTE | 2019-11-17 12:54 | NUR ---
PATIENT REPORTED THAT HER IV STARTED BLEEDING. REMOVED THE IV WITH THE CATHETER INTACT. PATIENT TOLERATED. PATIENT HAD REPORTED THAT SHE HAD IT PLACED IN [facility] AND THEY HAD USED A VEIN FINDER BECAUSE SHE IS A DIFFICULT STICK. WILL INSPECT AND SEE IF ONE CAN BE PLACED.
[2019-11-17 13:40] VITALS: BP 159/67
--- NOTE | 2019-11-17 17:25 | NUR ---
IV STARTED BY VASCULAR ACCESS NURSE. 22G RIGHT WRIST. I HAD LOOKED AND I WAS UNABLE TO FIND A VEIN. GRIFFIN USED THE VEIN FINDER.
[2019-11-17 17:45] VITALS: BP 155/54
--- NOTE | 2019-11-17 19:44 | NUR ---
PT IN BED, AAO X 3, RESP EVEN AND UNLABORED. NO DISTRESS NOTED, CL IN REACH, SR UP X 2.
[2019-11-17 20:00] VITALS: BP 121/54
[2019-11-18 00:30] VITALS: BP 132/53
[2019-11-18 04:30] VITALS: BP 118/50
--- NOTE | 2019-11-18 06:06 | NUR ---
I have reviewed this patient and I concur with the Shift Assessment completed by the Licensed Practical Nurse today this shift.
[2019-11-18 06:36] LABS: BASOPHILS 0.4 % (0-2); EOSINOPHILS 2.5 % (0-7); HEMOGLOBIN 9.3 g/dL (12-16); IMMATURE GRANULOCYTES 0.2 % (0-5); LYMPHOCYTES 38.9 % (15-50); MCH 30.7 pg (26.0-34.0); MCV 102.3 fL (80.0-100.0); MEAN PLATELET VOLUME 8.9 fL (7.4-10.4); MONOCYTES 9.8 % (2-11); NEUTROPHILS 48.2 % (40-80); PLATELET COUNT 277 10x3/uL (130-400); RBC 3.03 10x6/uL (4.00-5.40); RDW 17.2 % (11.5-14.5); WBC 5.6 10x3/uL (4.8-10.8)
[2019-11-18 07:08] LABS: ANION GAP 15.6 mmol/L (8-16); CALCIUM 7.6 mg/dL (8.5-10.1); CARBON DIOXIDE 25.6 mmol/L (21.0-32.0); CREATININE - SERUM 11.2 mg/dL (0.6-1.3); POTASSIUM - SERUM 4.2 mmol/L (3.5-5.1); VANCOMYCIN - RANDOM 14.4 ug/mL (10.0-20.0)
[2019-11-18 08:50] VITALS: BP 138/63
--- NOTE | 2019-11-18 15:48 | NUR ---
PT BACK TO ROOM FROM DIALYSIS.
[2019-11-18 18:05] VITALS: BP 148/61
[2019-11-18 20:00] VITALS: BP 145/60
--- NOTE | 2019-11-19 01:43 | NUR ---
ASSESSED AT THE BEGINNING OF THE SHIFT. PT IS ALERT AND ORIENTED, ABLE TO VERBALIZE NEEDS. SHE HAD DIDLYSIS ON FRIDAY AND IS NOT VOIDING. SHE IS ON ROOM AIR AND HAS TELEMETRY IN PLACE. THE LEFT ARM HAS A GRAFT AND IS RESERVED. AT SHE TOOK A NORCO FOR GENERALIZED PAIN. HER BLOOD SUGAR WAS 238 AT BEDTIME AND IT WAS ADDRESSED.
[2019-11-19 04:00] VITALS: BP 153/53
--- NOTE | 2019-11-19 04:16 | NUR ---
ASLEEP WITH NO DISTRESS NOTED.
[2019-11-19 05:05] LABS: BASOPHILS 0.5 % (0-2); EOSINOPHILS 2.8 % (0-7); HEMOGLOBIN 9.4 g/dL (12-16); IMMATURE GRANULOCYTES 0.3 % (0-5); LYMPHOCYTES 37.4 % (15-50); MCH 30.7 pg (26.0-34.0); MCHC 29.4 g/dL (31.0-37.0); MEAN PLATELET VOLUME 9.1 fL (7.4-10.4); MONOCYTES 11.2 % (2-11); NEUTROPHILS 47.8 % (40-80); PLATELET COUNT 252 10x3/uL (130-400); RBC 3.06 10x6/uL (4.00-5.40); RDW 17.3 % (11.5-14.5); WBC 6.1 10x3/uL (4.8-10.8)
[2019-11-19 05:24] LABS: MCV 104.6 fL (80.0-100.0)
[2019-11-19 05:26] LABS: CALCIUM 8.2 mg/dL (8.5-10.1); CARBON DIOXIDE 27.9 mmol/L (21.0-32.0); POTASSIUM - SERUM 3.9 mmol/L (3.5-5.1); VANCOMYCIN - RANDOM 12.3 ug/mL (10.0-20.0)
[2019-11-19 05:36] LABS: CREATININE - SERUM 7.9 mg/dL (0.6-1.3)
--- NOTE | 2019-11-19 07:27 | NUR ---
PT AWAKE AND ALERT SITTING UP IN BED. NO COMPLAINTS, HOPING TO GO HOME TODAY.
[2019-11-19] MEDS ORDERED: AMOX TR-K CLV 21 TAB PO (09:23)
[2019-11-19] MEDS ORDERED: FLORAJEN3 CAPS460 MG PO (09:25)
--- NOTE | 2019-11-19 10:03 | MORECARE ---
CASE MANAGEMENT DISCHARGE SUMMARY PATIENT: SHANTAL COOLEY UNIT: [id number] ADM DATE: 11/16/19 AGE: 74 : 47 SEX: F ROOM/BED: D.2102 AUTHOR: JOSH LILLY PHYSICIAN: REFERRING PHYSICIAN: LUCHO CHIN MD DATE OF SERVICE: 11/19/19 Discharge Plan Patient Name: SHANTAL COOLEY Facility: [facility]:[place] : 1945 Planned Disposition: Home Anticipated Discharge Date: 11/19/19 Discharge Date: Expected LOS: 3 Initial Reviewer: [email or web address] Initial Review Date: 11/19/2019 Generated: 11/19/19 11:02 am Coverage Notice Reviewer: [email or web address] Magan Ramírez Notice Issued Date-Time: 11/19/2019 9:49 Notice Type: IM Discharge Notice Notice Delivered To: Patient Relationship to Patient: Self Offset Machine Operator Name: Delivery Method: HAND - Hand Delivered Jackie Days: Prior Verbal Notification: Recipient Understood Notice: Yes Recipient Signature: Yes Med Rec Note Co-signed by Attending: Coverage Notice Comment: IMM explained, signed, given, copy placed in MR Patient Name: SHANTAL COOLEY Page [id number] at 1003 All edits/amendments must be made on the electronic document DICTATION DATE: 11/19/19 1002 TIME CHECKER: JEFF 11/19/19 1002 RPT#: [id number] DC DATE: STATUS: ADM IN [facility] [address] [place] [address] END OF REPORT
--- NOTE | 2019-11-19 10:24 | MORECARE ---
CASE MANAGEMENT DISCHARGE SUMMARY PATIENT: SHANTAL COOLEY UNIT: [id number] ADM DATE: 11/16/19 AGE: 74 : 47 SEX: F ROOM/BED: D.2105 AUTHOR: JOSH LILLY PHYSICIAN: REFERRING PHYSICIAN: LUCHO CHIN MD DATE OF SERVICE: 11/19/19 Discharge Plan Patient Name: SHANTAL COOLEY Facility: [facility]:[place] : 1945 Planned Disposition: Home Anticipated Discharge Date: 11/19/19 Discharge Date: Expected LOS: 3 Initial Reviewer: [email or web address] Initial Review Date: 11/19/2019 Generated: 11/19/19 11:24 am Comments DCP- Discharge Planning Updated by [id number]: Edna Ramírez on 11/19/19 9:[address] Patient Name: SHANTAL COOLEY Admission Status: ER Accout number: [id number] Admission Date: 11-16-2019 : 1945 Admission Diagnosis:SEPSIS, UNSPECIFIED ORGANISM Attending: LUCHO CHIN Current LOS: 3 Anticipated DC Date: 11-19-2019 Planned Disposition: Home Primary Insurance: MEDICARE A & B Discharge Planning Comments: CM met with patient to complete initial dc planning assessment. CM educated patient on the CM role and verbal consent given by patient to complete assessment. Patient lives at in [place] at home alone. At discharge patient plans to return and feels this is a safe discharge. She has dialysis TTS at [facility] dialysis in [place]. I called Shelia Mcfarlane and she can return to her regular schedule tomorrow. States a friend will drive her home. CM discussed availability of home health, rehab services, and medical equipment. Patient denied known discharge needs at this time. CM will continue to follow and will assist as needed with dc plans/needs. Strategic Planning Specialist: Edna Ramírez DCPIA - Discharge Planning Initial Assessment Updated by [email or web address]: Edna Ramírez on 11/19/19 10:17 am * Is the patient Alert and Oriented? Yes * How many steps to enter\exit or inside your home? 1/0 * PCP Dr. Licona in [place] * Pharmacy [facility] on [place] * Preadmission Environment Home Alone * ADLs Independent * Equipment None * List name and contact numbers for known caregivers / representatives who currently or will assist patient after discharge: Sorin Cooley - father - [phone] * Verbal permission to speak to the caregivers and representatives has been obtained from the patient. Yes * Community resources currently utilized Other * Please name any agencies selected above. Dialysis TTS - in [place] * Additional services required to return to the preadmission environment? No * Can the patient safely return to the preadmission environment? Yes * Has this patient been hospitalized within the prior 30 days at any hospital? Yes Coverage Notice Reviewer: [id number] Magan Ramírez Notice Issued Date-Time: 11/19/2019 9:49 Notice Type: IM Discharge Notice Notice Delivered To: Patient Relationship to Patient: Self Environmental Engineering Aide Name: Delivery Method: HAND - Hand Delivered Jakcie Days: Prior Verbal Notification: Recipient Understood Notice: Yes Recipient Signature: Yes Med Rec Note Co-signed by Attending: Coverage Notice Comment: IMM explained, signed, given, copy placed in MR Last DP export: 11/19/19 9:03 a Patient Name: SHANTAL COOLEY Page 10271 at 1024 All edits/amendments must be made on the electronic document DICTATION DATE: 11/19/19 1024 ACCOUNTING MANAGER ASSISTANT CONTROLLER: JEFF 11/19/19 1024 RPT#: [id number] DC DATE: STATUS: ADM IN [facility] [address] [place] [address] END OF REPORT
[2019-11-19 10:56] VITALS: BP 99/77
--- NOTE | 2019-11-19 13:08 | NUR ---
IV REMOVED, DISCHARGE INSTRUCTIONS REVIEWED. WHEELED OUT VIA WHEELCHAIR TO FRONT.
--- NOTE | 2019-11-19 16:25 | MORECARE ---
CASE MANAGEMENT DISCHARGE SUMMARY PATIENT: SHANTAL COOLEY UNIT: [id number] ADM DATE: 11/16/19 AGE: 74 : 47 SEX: F ROOM/BED: D.210 AUTHOR: JOSH LILLY PHYSICIAN: REFERRING PHYSICIAN: LUCHO CHIN MD DATE OF SERVICE: 11/19/19 Discharge Plan Patient Name: SHANTAL COOLEY Facility: [facility]:[place] : 1945 Planned Disposition: Home Anticipated Discharge Date: 11/19/19 Discharge Date: 11/19/2019 Expected LOS: 3 Initial Reviewer: [email or web address] Initial Review Date: 11/19/2019 Generated: 11/19/19 5:24 pm Comments DCP- Discharge Planning Updated by [email or web address]: Edna Ramírez on 11/19/19 9:[address] Patient Name: SHANTAL COOLEY Admission Status: ER Accout number: [id number] Admission Date: 11-16-2019 : 1945 Admission Diagnosis:SEPSIS, UNSPECIFIED ORGANISM Attending: LUCHO CHIN Current LOS: 3 Anticipated DC Date: 11-19-2019 Planned Disposition: Home Primary Insurance: MEDICARE A & B Discharge Planning Comments: CM met with patient to complete initial dc planning assessment. CM educated patient on the CM role and verbal consent given by patient to complete assessment. Patient lives at in [place] at home alone. At discharge patient plans to return and feels this is a safe discharge. She has dialysis TTS at [facility] dialysis in [place]. I called Shelia Mcfarlane and she can return to her regular schedule tomorrow. States a friend will drive her home. CM discussed availability of home health, rehab services, and medical equipment. Patient denied known discharge needs at this time. CM will continue to follow and will assist as needed with dc plans/needs. Municipal Clerk: Edna Ramírez DCPIA - Discharge Planning Initial Assessment Updated by [id number]: Edna Ramírez on 11/19/19 10:17 am * Is the patient Alert and Oriented? Yes * How many steps to enter\exit or inside your home? 1/0 * PCP Dr. Licona in [place] * Pharmacy [facility] on [place] * Preadmission Environment Home Alone * ADLs Independent * Equipment None * List name and contact numbers for known caregivers / representatives who currently or will assist patient after discharge: Sorin Cooley - father - [phone] * Verbal permission to speak to the caregivers and representatives has been obtained from the patient. Yes * Community resources currently utilized Other * Please name any agencies selected above. Dialysis TTS - in [place] * Additional services required to return to the preadmission environment? No * Can the patient safely return to the preadmission environment? Yes * Has this patient been hospitalized within the prior 30 days at any hospital? Yes Coverage Notice Reviewer: [id number] Magan Ramírez Notice Issued Date-Time: 11/19/2019 9:49 Notice Type: IM Discharge Notice Notice Delivered To: Patient Relationship to Patient: Self Fbi Field Agent Name: Delivery Method: HAND - Hand Delivered Jackie Days: Prior Verbal Notification: Recipient Understood Notice: Yes Recipient Signature: Yes Med Rec Note Co-signed by Attending: Coverage Notice Comment: IMM explained, signed, given, copy placed in MR Last DP export: 11/19/19 9:24 a Patient Name: SHANTAL COOLEY Page [id number] at 1625 All edits/amendments must be made on the electronic document DICTATION DATE: 11/19/191623 PORCELAIN FINISH SPRAYER: JEFF 11/19/191623 RPT#: [id number] DC DATE:11/19/19 STATUS: DIS IN [facility] [address] [place] [address] END OF REPORT
== END 2019-11-19 13:09 | disposition home or self-care (01) | DRG 871 ==
LOC: D.ER 12:07 → D.M2 13:22
PROVIDERS: Family Medicine; ADMIT Internal Medicine Nephrology; ATTEND Internal Medicine Nephrology
PROC: 5A1D70Z Performance of Urinary Filtration, Intermittent, Less than 6 Hours Per Day (ICD-10-PCS; principal; 2019-11-17)
DX: A41.9 Sepsis, unspecified organism (principal); N18.6 End stage renal disease; N12 Tubulo-interstitial nephritis, not specified as acute or chronic; I12.0 Hypertensive chronic kidney disease with stage 5 chronic kidney disease or end stage renal disease; N39.0 Urinary tract infection, site not specified; E11.22 Type 2 diabetes mellitus with diabetic chronic kidney disease; D63.1 Anemia in chronic kidney disease; I95.9 Hypotension, unspecified

== ENCOUNTER 2019-11-27 09:35 | Inpatient (IN) | payer MEDICARE, BC ==
[~2019-11-27] VITALS: Ht 172.7 cm; Wt 111.1 kg
--- NOTE | ~2019-11-27 | OP ---
PATIENT NAME: SHANTAL COOLEY MEDICAL RECORD: [id number] :49 LOCATION:D.M2 D.2130 ADMISSION DATE:11/27/19 SURGEON: SUMAN POWERS MD DATE OF OPERATION: 11/29/2019 REFERRING PHYSICIAN: Betty Christianson DO PREOPERATIVE DIAGNOSES: End-stage renal disease and dependence on hemodialysis and exposed prosthetic AV graft in the left arm via a pinhole skin erosion from a perforating stent strut. POSTOPERATIVE DIAGNOSES: End-stage renal disease and dependence on hemodialysis and exposed prosthetic AV graft in the left arm via a pinhole skin erosion from a perforating stent strut. OPERATION PERFORMED: Insertion of a right internal jugular HemoSplit tunneled dialysis catheter done under fluoroscopy with realtime ultrasound guidance of micropuncture needle and guidewire insertion followed by open revision without thrombectomy of AV graft, left arm. SURGEON: Suman Powers MD ANESTHESIA: General per LICENSED PRACTICAL NURSE INSTRUCTOR via LMA. PREOPERATIVE NOTE: Ms. Cooley is a 74-year-old white female patient with end-stage renal disease, on chronic hemodialysis in [place], [place]. She is on dialysis via a left upper arm rainbow configured brachial artery to proximal basilic vein PTFE AV graft. She has 2 stents in her graft and the distal end of the stent in the body has eroded through the graft and through the overlying skin, at least 1 strut and therefore, this is an infected exposed graft and that segment of exposed graft needs to be excised. At this time, there is no other evidence of sepsis or local purulence. She has been mistakenly placed in isolation for COVID virus because she had a single screening test done for what I thought was preoperative requirements. I have requested that COVID isolation protocol be immediately dismissed as it was not intended and was a mistake on my part as I did not realize the cascade of events, which that simple order would result in. DESCRIPTION OF PROCEDURE: Under general anesthesia, we were unable to start a peripheral IV; therefore, I went ahead and inserted her tunneled dialysis catheter which we were going to do anyway. Under local anesthesia, she was prepped and draped in sterile manner and the skin over the internal jugular vein at the base of the neck on the right was anesthetized with 1% lidocaine and a small incision made. Ultrasound was then used to locate precisely and evaluate the internal jugular vein. It was of normal caliber and fully compressible without abnormality. No thrombi, etc. A micropuncture needle was then inserted through the incision and directly into the vein with realtime ultrasound imaging and under fluoroscopy, a micropuncture guidewire was inserted and threaded into the superior vena cava. A catheter wire exchange was done and dilators passed over the 0.038 wire and lastly, a peel-away introducer was inserted all under fluoroscopy. I chose a 19-cm HemoSplit and made an incision beneath the clavicle and pulled that catheter from the infraclavicular site up to the cervical incision where it was then inserted through the peel-away sheath and the peel-away sheath removed. The catheter tip was positioned nicely in the OPERATIVE REPORT [id number] SHANTAL COOLEY right atrium and the catheter was accessed and both lumens aspirated easily and were then flushed easily with saline and then heparin locked with 100 unit per cc heparin. The catheter was clamped and capped and sutured to the skin near the entry site with 2-0 Prolene. The cervical wound was approximated with interrupted inverted 3-0 Vicryl and Dermabond glue, Maxorb AG and Tegaderm with Cavilon skin prep. A chlorhexidine BioPatch was placed on the catheter at the skin exit and a standard CVL adhesive plastic dressing applied. The patient's left arm was then prepped and draped in a sterile manner. I examined her arm first with Duplex ultrasound and identified exactly the positions of the 2 stents. I did not see any evidence of any significant stenosis or thrombus or other abnormality. I made 2 incisions, one over the arterial limb and exposed it and controlled it with Silastic loops. Loop one over the venous limb and I exposed that and controlled it, also placed a Silastic loop around it. The patient was then heparinized with 5000 units of heparin. After adequate circulation time, the graft was clamped at both sites and transected. It was necessary to trim the venous limb back to the stent in order to have a really clean lumen, so that the subsequent anastomosis was done end of the new graft to end of stented graft. The arterial limb was transected as well and there was no stent there and no need for any more aggressive debridement. I incised the skin directly over the questionable segment of graft and dissected it from the surrounding structures and removed it and sent it for culture. I swabbed the graft also for aerobic and anaerobic organisms culture. The wound was irrigated with Ancef and gentamicin solution. I then made a new tunnel and placed a new 6 mm diameter Bliss Propaten PTFE graft in it. The venous anastomosis was done first end-to-end and was made more difficult of course because of the indwelling stent in the distal graft segment. The anastomosis was done with running 6-0 Prolene and completed with BioGlue. The graft was flushed then with heparinized saline and the arterial limb and anastomosis performed with continuous running 6-0 Prolene with much less difficulty course due to the absence of the stent that incision or anastomosis was also sealed with BioGlue. The occluding clamps were released and flow was established within the fistula and a continuous handheld Doppler demonstrated a continuous pleasing, continuous pulsatile flow to be present. The patient's wounds were again irrigated with Ancef and gentamicin solution, 20 mg of protamine was given systemically and electrocautery was used for additional hemostasis. The wounds were closed with interrupted inverted 3-0 Vicryl and running intracuticular 4-0 Stratafix. It was further closed and sealed with Dermabond glue and dressed with Maxorb Ag, Tegaderm, and Cavilon skin prep. The patient was awakened and according to COVID protocol, which I explained was totally unnecessary; however, she was continued on to the protocol really against my wishes at that point and then returned to her room in a stable condition. Blood loss during the operation was insignificant, 10 cc or less. None was replaced. Sponges, instruments, and needles were accounted for. No drain was used and no surgical specimen was submitted for histopathology, although I did submit swabs for cultures for aerobic and anaerobic organisms and a segment of prosthetic graft for culture as well. The anastomosis of the new graft end-to-end to stented graft in the venous limb, I believe would be at risk of rupture if a balloon angioplasty is performed at that site. In future, if she develops a stenosis at that site, I would recommend initial stenting, so as to avoid the complications of disruption of that anastomosis. OPERATIVE REPORT [id number] SHANTAL COOLEY She will be kept in the hospital overnight, probably have dialysis here in the morning via her HemoSplit and hopefully she will be able to go home tomorrow afternoon. She will need to go back on Plavix and Eliquis, although not until we are certain that she stable without any bleeding problems in her wound or the tunneled dialysis catheter site. TRANSINT:[id number] Voice Confirmation ID: [id number] DOCUMENT ID: [id number] CC: [facility] Procedure [facility] SUMAN POWERS MD CC: CARLITOS ELIAS MD and BETTY CHRISTIANSON DO [id number] DICTATION DATE: 11/30/19 0947 BOX TENDER: 11/30/19 1346 ADM IN [facility] [address] [place] [address]
[~2019-11-27 09:35] MED LIST changes: +AMOX TR-K CLV 21 TAB PO; +FLORAJEN3 CAPS460 MG PO
--- NOTE | 2019-11-27 11:40 | NUR ---
PT ARRIVED VIA AMBULATION, SHORT OF BREATH. STATES SHE HAS A NEW CHF DIAGNOSIS AND MOVING AROUND ALOT IS TIRING. O2 STATS ARE WNL. NO OMPLAINTS OR CONCERNS, FISTULA DRESSED, WILL NOT REMOVE AT THIS TIME. DRESSING C/D/I. CL INR EACH,S RX2 ALL QUESTIONS ANSWERED TO THE BEST OF MY ABILITY.
--- NOTE | 2019-11-27 12:32 | NUR ---
22 GAUGE IV PLACED TO RIGHT HAND X 1 STICK. GOOD BLOOD RETURN, EASY FLUSH. TAPED, DATED AND SECURED. PATIENT TOLERATED IV PLACEMENT WELL. NO DISTRESS. PATIENT SITTING TO SIDE OF BED WITH ATTENTION TOWARD TELEVISION.
[2019-11-27 14:10] VITALS: BP 147/61; BMI 37.4
--- NOTE | 2019-11-27 14:28 | NUR ---
SPOKE TO MICHAEL OLIVER, SHE STATED THAT THEY WERE HAVING TROUBLE REACHING DR. POWERS ON HIS CELLPHONE AND TO GO AHEAD AND LET THE PT EAT.
[2019-11-27 14:48] VITALS: BP 138/60
--- NOTE | 2019-11-27 18:12 | NUR ---
PT AWAKE AND ORIENTED, SITTING IN BED. WILL KEEP NPO AFTER MIDNIGHT INCASE DR. RAMÍREZ WANTS TO DO SURGERY.
--- NOTE | 2019-11-27 19:10 | NUR ---
REPORT RECEIVED, PT CARE ASSUMED. INTRODUCED SELF AND WROTE NAME ON BOARD. PT LYING IN BED WATCHING TV, AAOX4. DENIES ANY NEEDS AT THIS TIME. BED IN LOWEST POSITION, SR X2, CALL LIGHT WITHIN REACH. WILL CONTINUE TO MONITOR.
[2019-11-27 20:00] VITALS: BP 143/61
[2019-11-28 00:01] VITALS: BP 139/53
[2019-11-28 05:47] LABS: BASOPHILS 0.4 % (0-2); EOSINOPHILS 2.8 % (0-7); HEMATOCRIT 29.3 % (36.0-48.0); HEMOGLOBIN 8.6 g/dL (12-16); IMMATURE GRANULOCYTES 0.3 % (0-5); LYMPHOCYTES 32.4 % (15-50); MCH 30.3 pg (26.0-34.0); MCHC 29.4 g/dL (31.0-37.0); MCV 103.2 fL (80.0-100.0); MEAN PLATELET VOLUME 9.5 fL (7.4-10.4); MONOCYTES 8.6 % (2-11); NEUTROPHILS 55.5 % (40-80); PLATELET COUNT 259 10x3/uL (130-400); RBC 2.84 10x6/uL (4.00-5.40); RDW 17.3 % (11.5-14.5); WBC 7.2 10x3/uL (4.8-10.8)
[2019-11-28 06:22] LABS: ALBUMIN 2.2 g/dL (3.4-5.0); ANION GAP 11.8 mmol/L (8-16); BILIRUBIN - TOTAL 0.35 mg/dL (0.2-1.3); CARBON DIOXIDE 28.7 mmol/L (21.0-32.0); CREATININE - SERUM 7.2 mg/dL (0.6-1.3); POTASSIUM - SERUM 3.5 mmol/L (3.5-5.1); PROTEIN - SERUM 6.3 g/dL (6.4-8.2)
--- NOTE | 2019-11-28 08:11 | NUR ---
PT RESTING PEACEFULLY, BREATHS EVEN/REUGLAR AND UNLABORED. DID NOT WAKE I ENTERED, DID NOT FURTHER DISTURB AT THIS TIME. NO SIGNS OR SYMPTOMS OF ACUTE DISTRESS NOTED AT THIS TIME. CL IN REACH,S RX2.
--- NOTE | 2019-11-28 09:43 | NUR ---
TP AWAKE AND ORIENTED, PLANS FOR SURGERY ARE STILL UNCLEAR. REDRESSED OPEN GRAFT. NO COMPLAINTS OR CONCERNS. CL IN REACH, SRX2. ALL QUESTIONS ANSWERED TO THE BEST OF MY ABILITY.
--- NOTE | 2019-11-28 13:52 | NUR ---
PT AWAKE AND ORIENTED. VERY DISAPOINTED SURGERY IS NOT BEING DONE TODAY, BUT UNDERSTANDS. CL IN REACH,S RX2.
[2019-11-28 14:06] VITALS: BP 131/49
--- NOTE | 2019-11-28 14:26 | NUR ---
I HAVE REVIEWED THIS PATIENT AND I CONCUR WITH THE SHIFT ASSESSMENT COMPLETED BY THE INTERNATIONAL ACCOUNT REPRESENTATIVE THIS SHIFT.
--- NOTE | 2019-11-28 17:08 | NUR ---
PT AWAKE AND ORIENTED, HAD MULTIPLE SPOTS OF CONFUSION WHEN TRYING TO DO THE COVID TESTING, FINALLY FIGURED OUT WHAT WAS GOING ON. TESTING NOW, WILL TRANSFER TO NEW ROOM AFTER FOLLOWING APPROPRIATE PROTOCOL. CL IN REACH, SRX2.
--- NOTE | 2019-11-28 17:43 | NUR ---
PT TRANSFERED TO 2130 FOLLOWING PROTOCOL.
--- NOTE | 2019-11-28 20:17 | NUR ---
RECIEVED UP IN BED TALKING IN TELEPHONE. ALERT AND ORIENTED X4. UP AD MESFIN TO B/R. IV TO RT HAND SL. EDUCATED ON NPO STATUS AFTER MN. DENIES ANY QUESTIONS OR NEEDS.
[2019-11-28 21:19] VITALS: BP 150/63
--- NOTE | 2019-11-28 23:42 | NUR ---
BED SCALE WEIGHT 247.9. NARES SWABED WITH IODINE AND SCD'S IN PLACE. HAS HAD SOME NOSE BLEEDING D/T COVID TEST PER PT.
[2019-11-29 05:56] VITALS: BP 147/60
[2019-11-29 08:52] VITALS: BP 153/48
--- NOTE | 2019-11-29 09:27 | NUR ---
PT AWAKE AND ALERT IN BED. NPO FOR SURGERY. DRESSING TO LEFT FISTULA SITE NOTED, CDI. PT WITHOUT COMPLAINTS AT PRESENT. CONSENTS SIGNED ON CHART.
--- NOTE | 2019-11-29 12:28 | NUR ---
PT OFF TO SURGERY ON BED. EKG DONE PER REQUEST. MASK ON PT FOR TRANSPORT.
[2019-11-29 13:05] VITALS: Ht 172.7 cm; Wt 111.1 kg
[2019-11-29 16:50] VITALS: BP 141/67
--- NOTE | 2019-11-29 17:01 | NUR ---
PT BACK TO ROOM FROM PACU. RESTING QUIETLY. VITALS TAKEN. DINNER TRAY AT BEDSIDE. LEFT ARM ELEVATED, DRESSING CDI.
[2019-11-29 21:06] VITALS: BP 130/57
[2019-11-30 08:04] VITALS: BP 135/56
--- NOTE | 2019-11-30 08:05 | NUR ---
ON ASSESSMENT PT TRIALYSIS CATH IS BLEEDING WITH A PRESSURE DRESSING IN PLACE LOOKS TO BE OUT OF POSITION. NEW PRESSURE DRESSING APPLIED WILL CONTINUE TO MONITOR.
--- NOTE | 2019-11-30 10:15 | NUR ---
RT SUBCLAVIAN TRIALYSIS CATH STILL BLEEDING NEW DRESSING AND PRESSURE DRESSING APPLIED. WILL CONTINUE TO MONITOR.
--- NOTE | 2019-11-30 10:45 | NUR ---
FSBS 192.
--- NOTE | 2019-11-30 10:57 | NUR ---
DRESSING CHANGE TO RIGHT CHEST TRIALYSIS COMPLETED AT THIS TIME. NO BLEEDING FROM CATHETER NOTED. BIOPATCH PATENT AND VISIBLE THROUGHT WINDOW. PATIENT TOLERATED DRESSING CHANGE WELL. TELEMETRY PATENT. NO DISTRESS. CALL LIGHT WITHIN REACH.
[2019-11-30 11:00] VITALS: BP 126/76
--- NOTE | 2019-11-30 13:56 | NUR ---
UPDATE PROVIDED TO URSZULA FRANCES APN AT THIS TIME.
[2019-11-30 15:00] VITALS: BP 146/105
--- NOTE | 2019-11-30 16:57 | MORECARE ---
CASE MANAGEMENT DISCHARGE SUMMARY PATIENT: SHANTAL COOLEY UNIT: [id number] ADM DATE: 11/27/19 AGE: 74 : 47 SEX: F ROOM/BED: D.9814 AUTHOR: VIJAYA,JOSH PHYSICIAN: REFERRING PHYSICIAN: KENNY CHRISTIANSON DO DATE OF SERVICE: 11/30/19 Discharge Plan Patient Name: SHANTAL COOLEY Facility: [facility]:[place] : 1945 Planned Disposition: Home Anticipated Discharge Date: 12/02/19 Discharge Date: Expected LOS: 5 Initial Reviewer: [email or web address] Initial Review Date: 11/30/2019 Generated: 11/30/19 5:57 pm Comments DCP- Discharge Planning Updated by [id number]: Ángela Medeiros on 11/30/19 3:[address] CM spoke with patient, via telephone in observance of COVID precautions, about discharge planning / needs. Patient states she lives at home alone, independently and wants to return home upon hospital discharge. States she feels her home environment is safe. When CM mentioned home health services, patient declined. States she does NOT want home health. States she will have a friend drive her home upon hospital discharge. Denies any needs at this time. Patient goes to [facility] in [place] on Tuesdays//Saturdays. CM called Shelia Cornelius with Patient Relations about patient's outpatient HD. Shelia states CM needs to call Shelia upon anticipation of discharge to finalize outpatient HD resumption since patient was not suspected of COVID they may be able to resume her outpatient HD without the COVID results. When CM asked patient about frequent readmission (4 in the last 6 months, 3 times here and once at [facility]) patient states that her HD graft messed up this time, and she had Sepsis the last two times. States she keeps her follow up appointments, was readmitted before her follow up appointment this time. States she gets her prescriptions filled and takes her medication as directed. Denies any knowledge of anything that could have been done to avoid readmission. CM will continue to follow and assist as needed with discharge planning / needs. DCP- Discharge Planning Updated by [email or web address]: Edna Ramírez on 11/29/19 3:[address] I spoke with Shelia Mcfarlane today concerning possible discharge tomorrow and pending Covid-19 test. She will not be able to dialyze at [facility] until she has a negative Covid result. CM will continue to follow and assist with discharge planning/needs. DCPIA - Discharge Planning Initial Assessment Updated by [email or web address]: Ángela Medeiros on 11/30/19 4:35 pm * Is the patient Alert and Oriented? Yes * How many steps to enter\exit or inside your home? 5 w/rail * PCP Doyle Hanks in [place] * Pharmacy [facility] on [facility] in [place], [place] * Preadmission Environment Home Alone * ADLs Independent * Equipment Glucometer * List name and contact numbers for known caregivers / representatives who currently or will assist patient after discharge: Sorin Cooley, Father, * Verbal permission to speak to the caregivers and representatives has been obtained from the patient. Yes * Community resources currently utilized None * Additional services required to return to the preadmission environment? No * Can the patient safely return to the preadmission environment? Yes * Has this patient been hospitalized within the prior 30 days at any hospital? Yes Patient Name: SHANTAL COOLEY Page [id number] at 1657 All edits/amendments must be made on the electronic document DICTATION DATE: 11/30/191656 CITY CLERK: JEFF 11/30/191656 RPT#: [id number] DC DATE: STATUS: ADM IN [facility] [address] [place] [address] END OF REPORT
[2019-11-30 21:00] VITALS: BP 130/72
--- NOTE | 2019-12-01 10:31 | MORECARE ---
CASE MANAGEMENT DISCHARGE SUMMARY PATIENT: SHANTAL COOLEY UNIT: [id number] ADM DATE: 11/27/19 AGE: 74 : 47 SEX: F ROOM/BED: D.2060 AUTHOR: VIJAYA,JOSH PHYSICIAN: REFERRING PHYSICIAN: KENNY CHRISTIANSON DO DATE OF SERVICE: 12/01/19 Discharge Plan Patient Name: SHANTAL COOLEY Facility: [facility]:[place] : 1945 Planned Disposition: Home Anticipated Discharge Date: 12/02/19 Discharge Date: Expected LOS: 5 Initial Reviewer: [email or web address] Initial Review Date: 11/30/2019 Generated: 12/01/19 11:31 am Comments DCP- Discharge Planning Updated by [id number]: Edna Ramírez on 12/01/19 9:[address] Shelia Deyns notified of discharge order. Shelia states she is awaiting her dialysis unit to call her to see if they need her negative Covid result and also to see if she will need to change her chair time. Patient in agreement to discharge. DCP- Discharge Planning Updated by [id number]: Ángela Medeiros on 11/30/19 3:[address] CM spoke with patient, via telephone in observance of COVID precautions, about discharge planning / needs. Patient states she lives at home alone, independently and wants to return home upon hospital discharge. States she feels her home environment is safe. When CM mentioned home health services, patient declined. States she does NOT want home health. States she will have a friend drive her home upon hospital discharge. Denies any needs at this time. Patient goes to [facility] in [place] on Tuesdays//Saturdays. CM called Shelia Cornelius with Patient Relations about patient's outpatient HD. Shelia states CM needs to call Shelia upon anticipation of discharge to finalize outpatient HD resumption since patient was not suspected of COVID they may be able to resume her outpatient HD without the COVID results. When CM asked patient about frequent readmission (4 in the last 6 months, 3 times here and once at [facility]) patient states that her HD graft messed up this time, and she had Sepsis the last two times. States she keeps her follow up appointments, was readmitted before her follow up appointment this time. States she gets her prescriptions filled and takes her medication as directed. Denies any knowledge of anything that could have been done to avoid readmission. CM will continue to follow and assist as needed with discharge planning / needs. DCP- Discharge Planning Updated by [id number]: Edan Ramírez on 11/29/19 3:[address] I spoke with Shelia Mcfarlane today concerning possible discharge tomorrow and pending Covid-19 test. She will not be able to dialyze at [facility] until she has a negative Covid result. CM will continue to follow and assist with discharge planning/needs. DCPIA - Discharge Planning Initial Assessment Updated by [id number]: Ángela Medeiros on 11/30/19 4:35 pm * Is the patient Alert and Oriented? Yes * How many steps to enter\exit or inside your home? 5 w/rail * PCP Doyle Hanks in [place] * Pharmacy [facility] on [facility] in [place], [place] * Preadmission Environment Home Alone * ADLs Independent * Equipment Glucometer * List name and contact numbers for known caregivers / representatives who currently or will assist patient after discharge: Sorin Cooley, Father, * Verbal permission to speak to the caregivers and representatives has been obtained from the patient. Yes * Community resources currently utilized None * Additional services required to return to the preadmission environment? No * Can the patient safely return to the preadmission environment? Yes * Has this patient been hospitalized within the prior 30 days at any hospital? Yes Coverage Notice Reviewer: [id number] - Edna Montoyavincenzo Notice Issued Date-Time: 12/01/2019 10:26 Notice Type: IM Discharge Notice Notice Delivered To: Patient Relationship to Patient: Self Miner Assistant Name: Delivery Method: PHONE - Phone Jackie Days: Prior Verbal Notification: Recipient Understood Notice: Yes Recipient Signature: Med Rec Note Co-signed by Attending: Coverage Notice Comment: Phoned IMM to patient (due to COVID-19), explained, given by primary nurse and copy placed in MR Last DP export: 11/30/19 3:57 p Patient Name: SHANTAL COOLEY Page [id number] at 1031 All edits/amendments must be made on the electronic document DICTATION DATE: 12/01/19 103 CENTRAL OFFICE SUPERVISOR: JEFF 12/01/19 103 RPT#: [id number] DC DATE: STATUS: ADM IN [facility] [address] [place] [address] END OF REPORT
--- NOTE | 2019-12-01 13:42 | MORECARE ---
CASE MANAGEMENT DISCHARGE SUMMARY PATIENT: SHANTAL COOLEY UNIT: [id number] ADM DATE: 11/27/19 AGE: 74 : 47 SEX: F ROOM/BED: D.4409 AUTHOR: VIJAYA,JOSH PHYSICIAN: REFERRING PHYSICIAN: KENNY CHRISTIANSON DO DATE OF SERVICE: 12/01/19 Discharge Plan Patient Name: SHANTAL COOLEY Facility: [facility]:[place] : 1945 Planned Disposition: Home Anticipated Discharge Date: 12/02/19 Discharge Date: Expected LOS: 5 Initial Reviewer: [email or web address] Initial Review Date: 11/30/2019 Generated: 12/01/19 2:41 pm Comments DCP- Discharge Planning Updated by [id number]: Edna Ramírez on 12/01/19 9:[address] Shelia Denys notified of discharge order. Shelia states she is awaiting her dialysis unit to call her to see if they need her negative Covid result and also to see if she will need to change her chair time. Patient in agreement to discharge. DCP- Discharge Planning Updated by [id number]: Ángela Medeiros on 11/30/19 3:[address] CM spoke with patient, via telephone in observance of COVID precautions, about discharge planning / needs. Patient states she lives at home alone, independently and wants to return home upon hospital discharge. States she feels her home environment is safe. When CM mentioned home health services, patient declined. States she does NOT want home health. States she will have a friend drive her home upon hospital discharge. Denies any needs at this time. Patient goes to [facility] in [place] on Tuesdays//Saturdays. CM called Shelia Cornelius with Patient Relations about patient's outpatient HD. Shelia states CM needs to call Shelia upon anticipation of discharge to finalize outpatient HD resumption since patient was not suspected of COVID they may be able to resume her outpatient HD without the COVID results. When CM asked patient about frequent readmission (4 in the last 6 months, 3 times here and once at [facility]) patient states that her HD graft messed up this time, and she had Sepsis the last two times. States she keeps her follow up appointments, was readmitted before her follow up appointment this time. States she gets her prescriptions filled and takes her medication as directed. Denies any knowledge of anything that could have been done to avoid readmission. CM will continue to follow and assist as needed with discharge planning / needs. DCP- Discharge Planning Updated by [id number]: Edna Montoyavincenzo on 11/29/19 3:[address] I spoke with Shelia Mcfarlane today concerning possible discharge tomorrow and pending Covid-19 test. She will not be able to dialyze at [facility] until she has a negative Covid result. CM will continue to follow and assist with discharge planning/needs. DCPIA - Discharge Planning Initial Assessment Updated by [id number]: Ángela Medeiros on 11/30/19 4:35 pm * Is the patient Alert and Oriented? Yes * How many steps to enter\exit or inside your home? 5 w/rail * PCP Doyle Hanks in [place] * Pharmacy [facility] on [facility] in [place], [place] * Preadmission Environment Home Alone * ADLs Independent * Equipment Glucometer * List name and contact numbers for known caregivers / representatives who currently or will assist patient after discharge: Sorin Cooley, Father, * Verbal permission to speak to the caregivers and representatives has been obtained from the patient. Yes * Community resources currently utilized None * Additional services required to return to the preadmission environment? No * Can the patient safely return to the preadmission environment? Yes * Has this patient been hospitalized within the prior 30 days at any hospital? Yes External Providers External Provider: OTHER-OTHER Next Contact Date: Service Request Date: Service Type: Resolution: Reviewer: Comments: Coverage Notice Reviewer: [id number] - Edna Ramírez Notice Issued Date-Time: 12/01/2019 10:26 Notice Type: IM Discharge Notice Notice Delivered To: Patient Relationship to Patient: Self Application Project Leader Name: Delivery Method: PHONE - Phone Jackie Days: Prior Verbal Notification: Recipient Understood Notice: Yes Recipient Signature: Med Rec Note Co-signed by Attending: Coverage Notice Comment: Phoned IMM to patient (due to COVID-19), explained, given by primary nurse and copy placed in MR Last DP export: 12/01/19 9:31 a Patient Name: SHANTAL COOLEY Page [id number] at 1342 All edits/amendments must be made on the electronic document DICTATION DATE: 12/01/191341 CERTIFIED HEALTH EDUCATION SPECIALIST: JEFF 12/01/191341 RPT#: [id number] DC DATE: STATUS: ADM IN [facility] [address] [place] [address] END OF REPORT
--- NOTE | 2019-12-01 13:50 | MORECARE ---
CASE MANAGEMENT DISCHARGE SUMMARY PATIENT: SHANTAL COOLEY UNIT: [id number] ADM DATE: 11/27/19 AGE: 74 : 47 SEX: F ROOM/BED: D.9480 AUTHOR: JOSH LILLY PHYSICIAN: REFERRING PHYSICIAN: KENNY CHRISTIANSON DO DATE OF SERVICE: 12/01/19 Discharge Plan Patient Name: SHANTAL COOLEY Facility: [facility]:[place] : 1945 Planned Disposition: Home Anticipated Discharge Date: 12/02/19 Discharge Date: Expected LOS: 5 Initial Reviewer: [id number] Initial Review Date: 11/30/2019 Generated: 12/01/19 2:50 pm Comments DCP- Discharge Planning Updated by [email or web address]: Edna Desiree on 12/01/19 12:[address] I received a call from Shelia Mcfarlane that patient can discharge today and return to her dialysis unit tomorrow at the regular time. She does not have an order for Vancomycin and Shelia states to call Dr. Duran for clarification. I called Carrie Motta and she states ok to discharge and she will call her dialysis unit with Vancomycin orders. I faxed the cx report to her dialysis unit #[phone] DCP- Discharge Planning Updated by [id number]: Edna Montoyavincenzo on 12/01/19 9:[address] Shelia Mcfarlane notified of discharge order. Shelia states she is awaiting her dialysis unit to call her to see if they need her negative Covid result and also to see if she will need to change her chair time. Patient in agreement to discharge. DCP- Discharge Planning Updated by [id number]: Ángela Medeiros on 11/30/19 3:[address] CM spoke with patient, via telephone in observance of COVID precautions, about discharge planning / needs. Patient states she lives at home alone, independently and wants to return home upon hospital discharge. States she feels her home environment is safe. When CM mentioned home health services, patient declined. States she does NOT want home health. States she will have a friend drive her home upon hospital discharge. Denies any needs at this time. Patient goes to [facility] in [place] on Tuesdays//Saturdays. CM called Shelia Cornelius with Patient Relations about patient's outpatient HD. Shelia states CM needs to call Shelia upon anticipation of discharge to finalize outpatient HD resumption since patient was not suspected of COVID they may be able to resume her outpatient HD without the COVID results. 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 States she keeps her follow up appointments, was readmitted before her follow up appointment this time. States she gets her prescriptions filled and takes her medication as directed. Denies any knowledge of anything that could have been done to avoid readmission. CM will continue to follow and assist as needed with discharge planning / needs. DCP- Discharge Planning Updated by [email or web address]: Edna Ramírez on 11/29/19 3:[address] I spoke with Shelia Mcfarlane today concerning possible discharge tomorrow and pending Covid-19 test. She will not be able to dialyze at [facility] until she has a negative Covid result. CM will continue to follow and assist with discharge planning/needs. DCPIA - Discharge Planning Initial Assessment Updated by [email or web address]: Ángela Medeiros on 11/30/19 4:35 pm * Is the patient Alert and Oriented? Yes * How many steps to enter\exit or inside your home? 5 w/rail * PCP Doyle Hanks in [place] * Pharmacy [facility] in [place], [place] * Preadmission Environment Home Alone * ADLs Independent * Equipment Glucometer * List name and contact numbers for known caregivers / representatives who currently or will assist patient after discharge: Sorin Cooley, Father, * Verbal permission to speak to the caregivers and representatives has been obtained from the patient. Yes * Community resources currently utilized None * Additional services required to return to the preadmission environment? No * Can the patient safely return to the preadmission environment? Yes * Has this patient been hospitalized within the prior 30 days at any hospital? Yes Coverage Notice Reviewer: [id number] - Edna Ramírez Notice Issued Date-Time: 12/01/2019 10:26 Notice Type: IM Discharge Notice Notice Delivered To: Patient Relationship to Patient: Self Rand Tacker Name: Delivery Method: PHONE - Phone Jackie Days: Prior Verbal Notification: Recipient Understood Notice: Yes Recipient Signature: Med Rec Note Co-signed by Attending: Coverage Notice Comment: Phoned IMM to patient (due to COVID-19), explained, given by primary nurse and copy placed in MR Last DP export: 12/01/19 12:42 p Patient Name: SHANTAL COOLEY Page [id number] at 1350 All edits/amendments must be made on the electronic document DICTATION DATE: 12/01/19 1350 APPRENTICE TECHNICIAN: JEFF 12/01/19 1350 RPT#: [id number] DC DATE: STATUS: ADM IN [facility] [address] [place] [address] END OF REPORT
[2019-12-01 14:19] LABS: BASOPHILS 0.2 % (0-2); EOSINOPHILS 3.3 % (0-7); HEMATOCRIT 27.7 % (36.0-48.0); HEMOGLOBIN 8.3 g/dL (12-16); IMMATURE GRANULOCYTES 0.3 % (0-5); LYMPHOCYTES 43.4 % (15-50); MCH 30.4 pg (26.0-34.0); MCV 101.5 fL (80.0-100.0); MEAN PLATELET VOLUME 9.5 fL (7.4-10.4); MONOCYTES 8.7 % (2-11); NEUTROPHILS 44.1 % (40-80); PLATELET COUNT 208 10x3/uL (130-400); RBC 2.73 10x6/uL (4.00-5.40); RDW 17.3 % (11.5-14.5); WBC 5.7 10x3/uL (4.8-10.8)
[2019-12-01 14:59] LABS: ANION GAP 15.5 mmol/L (8-16); CALCIUM 7.8 mg/dL (8.5-10.1); CARBON DIOXIDE 28.9 mmol/L (21.0-32.0); CREATININE - SERUM 8.5 mg/dL (0.6-1.3); PHOSPHOROUS 5.2 mg/dL (2.5-4.9); POTASSIUM - SERUM 3.4 mmol/L (3.5-5.1); VANCOMYCIN - RANDOM 13.3 ug/mL (10.0-20.0)
--- NOTE | 2019-12-02 07:18 | MORECARE ---
CASE MANAGEMENT DISCHARGE SUMMARY PATIENT: SHANTAL COOLEY UNIT: [id number] ADM DATE: 11/27/19 AGE: 74 : 47 SEX: F ROOM/BED: D.6170 AUTHOR: JOSH LILLY PHYSICIAN: REFERRING PHYSICIAN: KENNY CHRISTIANSON DO DATE OF SERVICE: 12/02/19 Discharge Plan Patient Name: SHANTAL COOLEY Facility: [facility]:[place] : 1945 Planned Disposition: Home Anticipated Discharge Date: 12/02/19 Discharge Date: 12/01/2019 Expected LOS: 5 Initial Reviewer: [email or web address] Initial Review Date: 11/30/2019 Generated: 12/02/19 8:18 am Comments DCP- Discharge Planning Updated by [id number]: Edna Montoyavincenzo on 12/01/19 12:[address] I received a call from Shelia Mcfarlane that patient can discharge today and return to her dialysis unit tomorrow at the regular time. She does not have an order for Vancomycin and Shelia states to call Dr. Duran for clarification. I called Carrie Motta and she states ok to discharge and she will call her dialysis unit with Vancomycin orders. I faxed the cx report to her dialysis unit #[phone] DCP- Discharge Planning Updated by [email or web address]: Edna Montoyavincenzo on 12/01/19 9:[address] Shelia Mcfarlane notified of discharge order. Shelia states she is awaiting her dialysis unit to call her to see if they need her negative Covid result and also to see if she will need to change her chair time. Patient in agreement to discharge. DCP- Discharge Planning Updated by [id number]: Ángela Medeiros on 11/30/19 3:[address] CM spoke with patient, via telephone in observance of COVID precautions, about discharge planning / needs. Patient states she lives at home alone, independently and wants to return home upon hospital discharge. States she feels her home environment is safe. When CM mentioned home health services, patient declined. States she does NOT want home health. States she will have a friend drive her home upon hospital discharge. Denies any needs at this time. Patient goes to [facility] in [place] on Tuesdays//Saturdays. CM called Shelia Cornelius with Patient Relations about patient's outpatient HD. Shelia states CM needs to call Shelia upon anticipation of discharge to finalize outpatient HD resumption since patient was not suspected of COVID they may be able to resume her outpatient HD without the COVID results. 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 States she keeps her follow up appointments, was readmitted before her follow up appointment this time. States she gets her prescriptions filled and takes her medication as directed. Denies any knowledge of anything that could have been done to avoid readmission. CM will continue to follow and assist as needed with discharge planning / needs. DCP- Discharge Planning Updated by [id number]: Edna Ramírez on 11/29/19 3:[address] I spoke with Shelia Mcfarlane today concerning possible discharge tomorrow and pending Covid-19 test. She will not be able to dialyze at [facility] until she has a negative Covid result. CM will continue to follow and assist with discharge planning/needs. DCPIA - Discharge Planning Initial Assessment Updated by [email or web address]: Ángela Medeiros on 11/30/19 4:35 pm * Is the patient Alert and Oriented? Yes * How many steps to enter\exit or inside your home? 5 w/rail * PCP Doyle Hanks in [place] * Pharmacy [facility] in [place], [place] * Preadmission Environment Home Alone * ADLs Independent * Equipment Glucometer * List name and contact numbers for known caregivers / representatives who currently or will assist patient after discharge: Sorin Cooley, Father, * Verbal permission to speak to the caregivers and representatives has been obtained from the patient. Yes * Community resources currently utilized None * Additional services required to return to the preadmission environment? No * Can the patient safely return to the preadmission environment? Yes * Has this patient been hospitalized within the prior 30 days at any hospital? Yes Coverage Notice Reviewer: [id number] - Edna Ramírez Notice Issued Date-Time: 12/01/2019 10:26 Notice Type: IM Discharge Notice Notice Delivered To: Patient Relationship to Patient: Self Bottle Packer Name: Delivery Method: PHONE - Phone Jackie Days: Prior Verbal Notification: Recipient Understood Notice: Yes Recipient Signature: Med Rec Note Co-signed by Attending: Coverage Notice Comment: Phoned IMM to patient (due to COVID-19), explained, given by primary nurse and copy placed in MR Last DP export: 12/01/19 12:50 p Patient Name: SHANTAL COOLEY Page [phone] at 0718 All edits/amendments must be made on the electronic document DICTATION DATE: 12/02/19717 SALES REPRESENTATIVE SALES MANAGER: JEFF 12/02/19717 RPT#: [id number] DC DATE:12/01/19 STATUS: DIS IN [facility] [address] [place] [address] END OF REPORT
== END 2019-12-01 15:50 | disposition home or self-care (01) | DRG 252 ==
LOC: D.M2 09:35
PROVIDERS: Internal Medicine Nephrology; Surgery; ADMIT Internal Medicine; ATTEND Internal Medicine
PROC: 03WY0JZ Revision of Synthetic Substitute in Upper Artery, Open Approach (ICD-10-PCS; principal; 2019-11-29 09:30)
PROC: 0JH63XZ Insertion of Tunneled Vascular Access Device into Chest Subcutaneous Tissue and Fascia, Percutaneous Approach (ICD-10-PCS; 2019-11-29 09:30)
PROC: 05HM33Z Insertion of Infusion Device into Right Internal Jugular Vein, Percutaneous Approach (ICD-10-PCS; 2019-11-29 09:30)
PROC: 5A1D70Z Performance of Urinary Filtration, Intermittent, Less than 6 Hours Per Day (ICD-10-PCS; 2019-11-30)
DX: T82.898A Other specified complication of vascular prosthetic devices, implants and grafts, initial encounter (principal); N18.6 End stage renal disease; I13.2 Hypertensive heart and chronic kidney disease with heart failure and with stage 5 chronic kidney disease, or end stage renal disease; I50.32 Chronic diastolic (congestive) heart failure; N25.81 Secondary hyperparathyroidism of renal origin; E11.22 Type 2 diabetes mellitus with diabetic chronic kidney disease; D63.1 Anemia in chronic kidney disease; E11.40 Type 2 diabetes mellitus with diabetic neuropathy, unspecified; D50.9 Iron deficiency anemia, unspecified; J44.9 Chronic obstructive pulmonary disease, unspecified; E78.5 Hyperlipidemia, unspecified

== ENCOUNTER 2021-01-31 19:44 | Inpatient (IN) | payer MEDICARE, BC ==
[~2021-01-31] VITALS: Ht 172.7 cm; Wt 99.8 kg
[~2021-01-31 19:44] MED LIST changes: +LANTUS INS100 UNITS/ SC; -LANTUS INSULIN10 ML SC
--- NOTE | 2021-01-31 20:00 | NUR ---
FSBS 121
[2021-01-31 21:07] LABS: BASOPHILS 1.2 % (0-2); EOSINOPHILS 3.8 % (0-7); HEMATOCRIT 24.5 % (36.0-48.0); LYMPHOCYTES 27.4 % (15-50); MCH 29.4 pg (26.0-34.0); MCHC 30.8 g/dL (31.0-37.0); MCV 95.5 fL (80.0-100.0); MEAN PLATELET VOLUME 6.5 fL (7.4-10.4); MONOCYTES 6.6 % (2-11); RBC 2.56 10x6/uL (4.00-5.40); RDW 19.1 % (11.5-14.5); WBC 6.8 10x3/uL (4.8-10.8)
[2021-01-31 21:13] LABS: CALC OSMOLALITY 278 mosm/kg (275-300); CALCIUM 7.4 mg/dL (8.5-10.1); CARBON DIOXIDE 29.8 mmol/L (21.0-32.0); CHLORIDE - SERUM 100 mmol/L (98-107); CREATININE - SERUM 6.3 mg/dL (0.6-1.3); GLUCOSE 115 mg/dL (74-106); POTASSIUM - SERUM 4.5 mmol/L (3.5-5.1); SODIUM 136 mmol/L (136-145); UREA NITROGEN 30 mg/dL (7-18); eGFR NON AFRICAN AMERICAN 7 mL/min (90-120)
[2021-01-31 21:22] LABS: HEMOGLOBIN 7.5 g/dL (12-16); PLATELET COUNT 333 10x3/uL (130-400)
[2021-01-31 21:30] LABS: ALBUMIN 2.2 g/dL (3.4-5.0); ALKALINE PHOSPHATASE 79 U/L (30-120); ALT (SGPT) 21 U/L (10-68); AMYLASE - SERUM 31 U/L (25-115); BILIRUBIN - TOTAL 0.31 mg/dL (0.2-1.3); CKMB 1.2 U/L (0.0-3.6); CREATINE KINASE 42 UL (21-215); LIPASE 85 U/L (73-393); PRO BNP 26693 pg/mL (0-125); PROTEIN - SERUM 6.5 g/dL (6.4-8.2)
[2021-01-31 21:33] LABS: TROPONIN-I < 0.017 ng/mL (0.000-0.060)
[2021-01-31 21:35] LABS: INR 1.36 (0.85-1.17); PROTIME 15.5 SECONDS (11.6-15.0)
--- NOTE | 2021-01-31 21:49 | NUR ---
PT AMBUALTED TO THE RESTROOM WITH ASSITANCE.
[2021-01-31 22:22] LABS: UDS - AMPHET NEGATIVE QUAL (NEGATIVE); UDS - BARB NEGATIVE QUAL (NEGATIVE); UDS - BENZO NEGATIVE QUAL (NEGATIVE); UDS - COCAINE NEGATIVE QUAL (NEGATIVE); UDS - OPIATE NEGATIVE QUAL (NEGATIVE); UDS - PCP NEGATIVE QUAL (NEGATIVE); UDS - THC NEGATIVE QUAL (NEGATIVE)
[2021-01-31 22:27] LABS: BILIRUBIN NEGATIVE (NEGATIVE); KETONE NEGATIVE mg/dL (< 1+); NITRITE NEGATIVE (NEGATIVE); UROBILINOGEN NORMAL mg/dL (< 2); WHITE CELLS - URINE >182 HPF (0-4)
[2021-01-31 22:39] LABS: BACTERIA MODERATE HPF (NONE SEEN)
[2021-02-01] MEDS ORDERED: COREG6.25 MG PO (00:32)
[2021-02-01 02:02] VITALS: BMI 33.5
--- NOTE | 2021-02-01 08:15 | NUR ---
PT. RESTING IN BED, ALERT AND ORIENTED. PRBCS INFUSING TO R. AC IV. NO DISTRESS, CL WITHIN REACH. SR UPX2.
[2021-02-01 09:01] VITALS: BP 164/67
[2021-02-01 09:03] LABS: BASOPHILS 0.7 % (0-2); EOSINOPHILS 3.3 % (0-7); LYMPHOCYTES 20.4 % (15-50); MCH 28.6 pg (26.0-34.0); MCHC 30.5 g/dL (31.0-37.0); MCV 93.9 fL (80.0-100.0); MEAN PLATELET VOLUME 6.4 fL (7.4-10.4); MONOCYTES 7.1 % (2-11); NEUTROPHILS 68.5 % (40-80); PLATELET COUNT 338 10x3/uL (130-400); RDW 19.8 % (11.5-14.5); WBC 8.4 10x3/uL (4.8-10.8)
[2021-02-01 09:11] LABS: HEMATOCRIT 31.9 % (36.0-48.0); HEMOGLOBIN 9.7 g/dL (12-16)
--- NOTE | 2021-02-01 09:12 | NUR ---
PT STATES "I FEEL LIKE MY BLOOD SUGAR IS GETTING LOW". FSBS SHOW 41. DR DODGE CALLED AND TELEPHONE ORDERS RECD FRO 08/05 AMP D50 NOW. ORDERS PLACED. WILL ADMINISITER. SEE OCT.
[2021-02-01 09:13] LABS: ALBUMIN 2.2 g/dL (3.4-5.0); ANION GAP 12.5 mmol/L (8-16); BILIRUBIN - TOTAL 0.34 mg/dL (0.2-1.3); CALCIUM 7.5 mg/dL (8.5-10.1); CARBON DIOXIDE 27.1 mmol/L (21.0-32.0); CREATININE - SERUM 6.8 mg/dL (0.6-1.3); POTASSIUM - SERUM 4.6 mmol/L (3.5-5.1); PROTEIN - SERUM 6.6 g/dL (6.4-8.2)
--- NOTE | 2021-02-01 10:18 | NUR ---
RECHECK PT FSBS IS 60. DR DODGE NOTIFIED AND TELEPHONE ORDERS RECD TO PLACE HYPOGLYCEMIC PROTOCOL ORDERS AND FOLLOW. WILL PLACE ORDERS.
--- NOTE | 2021-02-01 12:02 | NUR ---
PT. IN DIALYSIS AT THIS TIME. REPORT GIVEN ON MED II TO YANIQUE OROZCO.
[2021-02-01 14:28] VITALS: BMI 33.4
[2021-02-01 18:21] VITALS: Ht 172.7 cm; Wt 99.8 kg
[2021-02-01 18:38] VITALS: BP 146/67
--- NOTE | 2021-02-01 20:00 | NUR ---
REPORT RECEIVED. PT A&O, UP IN BED RESTING QUIETLY. NO S/S OF DISTRESS OBSERVED. RR EVEN & UNLABORED ON RA. SR 16 ON TELE. 2 20G IV'S TO R FA SL. BED LOCKED AND LOWERED, CL IN REACH. WILL CONT POC.
[2021-02-01 21:43] VITALS: BP 166/62
[2021-02-02 05:55] LABS: INR 1.45 (0.85-1.17); PROTIME 16.3 SECONDS (11.6-15.0)
[2021-02-02 06:01] LABS: BASOPHILS 0.9 % (0-2); EOSINOPHILS 1.8 % (0-7); LYMPHOCYTES 18.9 % (15-50); MCH 29.1 pg (26.0-34.0); MCHC 32.1 g/dL (31.0-37.0); MEAN PLATELET VOLUME 6.5 fL (7.4-10.4); MONOCYTES 6.9 % (2-11); NEUTROPHILS 71.5 % (40-80); PLATELET COUNT 346 10x3/uL (130-400); RBC 3.43 10x6/uL (4.00-5.40); WBC 8.8 10x3/uL (4.8-10.8)
[2021-02-02 06:06] LABS: APTT 96.8 SECONDS (22.8-39.4)
[2021-02-02 06:31] LABS: MCV 90.5 fL (80.0-100.0)
[2021-02-02 06:36] LABS: CALCIUM 8.1 mg/dL (8.5-10.1); CARBON DIOXIDE 30.3 mmol/L (21.0-32.0); CREATININE - SERUM 5.3 mg/dL (0.6-1.3)
[2021-02-02 07:01] LABS: ANION GAP 11.5 mmol/L (8-16); POTASSIUM - SERUM 3.8 mmol/L (3.5-5.1)
--- NOTE | 2021-02-02 07:10 | NUR ---
PT LYING IN BED. RESP EVEN AND UNLABORED. AAO X4. DENIES NEEDS AT THIS TIME. REMAINS NPO FOR PROCEDURE. CLIR. BED IN LOWEST POSIITON. SIDE RAILS X2
[2021-02-02 07:34] LABS: % SATURATION 16 % (15-55); IRON 27 ug/dl (35-150); TOTAL IRON BIND CAPACITY 161 ug/dl (260-445); UNSAT IRON BIND CAPACITY 134 ug/dl (150-375)
--- NOTE | 2021-02-02 07:44 | NUR ---
PTS BLOOD SUGAR 51 W/ AM LABS. TREATED W/ SC GLUCOSE 1 MG. NOTIFIED ONCOMING CARLA SAEZ OF BLOOD SUGAR.
[2021-02-02 08:49] VITALS: BP 174/47
[2021-02-02 12:03] VITALS: BP 168/63
--- NOTE | 2021-02-02 14:29 | NUR ---
PT LEFT UNIT FOR PROCEDURE ACCOMPANIED BY HOSPITAL STAFF
--- NOTE | 2021-02-02 15:49 | NUR ---
PT RETURNED TO UNIT ACCOMPANIED BY HOSPITAL STAFF
--- NOTE | 2021-02-02 18:51 | NUR ---
I have reviewed this patient and I concur with the Shift Assessment completed by the Licensed Practical Nurse today this shift.
[2021-02-02 20:00] VITALS: BP 166/61
[2021-02-03 00:36] VITALS: BP 167/56
[2021-02-03 06:41] LABS: EOSINOPHILS 1.7 % (0-7); HEMATOCRIT 28.5 % (36.0-48.0); HEMOGLOBIN 9.1 g/dL (12-16); LYMPHOCYTES 21.1 % (15-50); MCH 29.8 pg (26.0-34.0); MCHC 31.9 g/dL (31.0-37.0); MEAN PLATELET VOLUME 6.7 fL (7.4-10.4); MONOCYTES 8.2 % (2-11); PLATELET COUNT 298 10x3/uL (130-400); RBC 3.06 10x6/uL (4.00-5.40); RDW 18.9 % (11.5-14.5); WBC 7.7 10x3/uL (4.8-10.8)
[2021-02-03 06:47] LABS: MCV 93.3 fL (80.0-100.0)
[2021-02-03 07:24] LABS: ANION GAP 15.3 mmol/L (8-16); CALCIUM 7.6 mg/dL (8.5-10.1); CARBON DIOXIDE 26.1 mmol/L (21.0-32.0); CREATININE - SERUM 6.6 mg/dL (0.6-1.3)
[2021-02-03 07:26] LABS: POTASSIUM - SERUM 4.4 mmol/L (3.5-5.1)
[2021-02-03 08:31] VITALS: BP 157/54
--- NOTE | 2021-02-03 08:45 | NUR ---
PATIENT TAKEN TO DIALYSIS VIA BED. IV TO RIGHT AC FOUND LYING IN THE FLOOR. NO BLEEDING FROM RIGHT AC. CATHETER TIP OF IV CATH INTACT. NO DISTRESS.
[2021-02-03] MEDS ORDERED: FLUCONAZOLE100 MG PO (11:08)
[2021-02-03] MEDS ORDERED: VITAMIN B-121000 MCG PO (11:10)
--- NOTE | 2021-02-03 12:20 | NUR ---
PATIENT DIALYSIS TX COMPLETE, 3 LITERS OFF, BP 144/73. PATIENT BACK TO UNIT SOON.
--- NOTE | 2021-02-03 14:34 | MORECARE ---
CASE MANAGEMENT DISCHARGE SUMMARY PATIENT: SHANTAL COOLEY UNIT: [id number] ADM DATE: 01/31/21 AGE: 75 : 47 SEX: F ROOM/BED: 2104 AUTHOR: VIJAYA,DOC PHYSICIAN: REFERRING PHYSICIAN: KENNY CHRISTIANSON DO DATE OF SERVICE: 02/03/21 Case Management Discharge Planning Summary DCP REVIEW SUMMARY ANTICIPATED D/C DATE: 02/03/2021 EXPECTED LOS : 3 CASE STATUS: DCP Initiated INITIAL REVIEW: 02/01/2021 INITIAL REVIEWER: Jame Matamoros FINAL DISCHARGE DISPOSITION: : FINAL REVIEWER: FINAL REVIEW DATE: DCP Focus Questions & Answers QUESTION: ANSWER : PATIENT: SHANTAL COOLEY ENCOUNTER: [id number] MEDICAL RECORD#: [id number] ADMISSION DATE: 01/31/2021 DISCHARGE DATE: ATTENDING MD: : AGE: 75 MARITAL STATUS: S DC PLAN ID: [id number] FACILITY: [facility] PRINTED ON: 02/03/21 14:34 CT All edits/amendments must be made on the electronic document DICTATION DATE: 02/03/21 143 AGRICULTURAL RESEARCH TECHNICIAN: DM 02/03/21 1434 RPT#: [id number] DC DATE: STATUS: ADM IN [facility] [address] [place] [address] END OF REPORT
--- NOTE | 2021-02-03 14:46 | MORECARE ---
CASE MANAGEMENT DISCHARGE SUMMARY PATIENT: SHANTAL COOLEY UNIT: [id number] ADM DATE: 01/31/21 AGE: 75 : 47 SEX: F ROOM/BED: D.2104 AUTHOR: JOSH LILLY PHYSICIAN: REFERRING PHYSICIAN: KENNY CHRISTIANSON DO DATE OF SERVICE: 02/03/21 Case Management Discharge Planning Summary COMMENTS ENTERED DATE: 02/03/21 14:37 CT COMMENT TYPE: Discharge Planning REVIEWER: Jame Matamoros CM met with patient to complete DC plan and to evaluate needs. Patient lives independently alone with strong support. Patient stated that her person to notify is her father, . Patient stated that her home is safe and has electricity and running water. Patient stated that the home has 5 steps to enter and she is able to manage the steps without difficulty. Patient stated that she has no problems paying for medications and she fills her medications at [facility] in [place], [place]. Patient stated that her primary care physician is Dr. Hanks. At discharge, the patient plans to return home and feels this is a safe discharge. CM discussed availability of home health, rehab services, and medical equipment. Patient declined HHS, SNF, IPR, and DME. Patient voiced no other needs at this time and is satisfied with DC plan. DC IMM delivered, explained, signed by the patient, and placed in chart. Signed form also left with the patient. CM will continue to follow and will assist as needed with dc plans/needs. DCP REVIEW SUMMARY ANTICIPATED D/C DATE: 02/03/2021 EXPECTED LOS : 3 CASE STATUS: DCP Initiated INITIAL REVIEW: 02/01/2021 INITIAL REVIEWER: Jame Matamoros FINAL DISCHARGE DISPOSITION: : FINAL REVIEWER: FINAL REVIEW DATE: DCP Focus Questions & Answers DCP Evaluation QUESTION: ANSWER Patient and/or caregiver agree upon recommended discharge plan? : Yes Patient's current cognitive status: : *Oriented to person, place, situation, time and present Patient's ability to cope with chronic illness : d. No chronic illness Family / Caregiver's ability to cope with chronic illness: : a. Adequate (ability to meet patient's medical needs, ensures patient attends medical appts.) Does the patient have the ability to pay for or attain post discharge needs / services? : Yes Functional screen assessment: : Basic needs can adequately be met by self Family / Caregiver's ability to cope with chronic illness: : a. Adequate (ability to meet patient's medical needs, ensures patient attends medical appts.) Physical Status: : Independent with ADL's Equipment needed for post hospitalization: : None Is there a likelihood that the patient will require additional services to return to the preadmission environment? : No Living Arrangements: : Home Alone with Support Patient with capacity for self-care or can be cared for in same environment as prior to hospitalization? : Yes Baseline cognitive status: : *Oriented to person, place, situation, time and present Physical environment modification needed / anticipated for discharge: : No Medication Management: : Patient states can read and understand medication labels Medication Management: : Patient states can afford medications Pharmacy name(s): : [facility] in [place], [place] Does Patient have transportation to get home and to follow-up medical appointments when discharged from the hospital? : Yes Would patient like to participate in any Care Coordination programs (if applicable): : Not applicable Does the patient have electricity at home? : Yes Does the patient have running water in their house? : Yes Equipment in use: : None Mental health screen: : No mental health history DCP Re-evaluation QUESTION: ANSWER Would patient like to participate in any Care Coordination programs (if applicable): : Not applicable PATIENT: SHANTAL COOLEY ENCOUNTER: [id number] MEDICAL RECORD#: [id number] ADMISSION DATE: 01/31/2021 DISCHARGE DATE: ATTENDING MD: BOBO: AGE: 75 MARITAL STATUS: S DC PLAN ID: [id number] FACILITY: [facility] PRINTED ON: 02/03/21 14:45 CT All edits/amendments must be made on the electronic document DICTATION DATE: 02/03/211444 TUBING MACHINE TENDER: DM 02/03/21 144 RPT#: [id number] DC DATE: STATUS: ADM IN [facility] [address] [place] [address] END OF REPORT
--- NOTE | 2021-02-03 15:02 | NUR ---
1450 TELEMETRY REMOVED AND DISCHARGE PAPERWORK PROVIDED TO PATIENT. PATIENT VERBALIZED UNDERSTANDING OF ALL PAPERWORK PROVIDED. PATIENT NOW AWAITING FOR HER RIDE FROM [employer] TO GET HERE.
--- NOTE | 2021-02-03 16:21 | NUR ---
PATIENT CONTINUES TO WAIT ON HER RIDE TO PICK HER UP, NO DISTRESS. DENIES ANY NEEDS.
--- NOTE | 2021-02-03 17:16 | NUR ---
PATIENT LEFT UNIT VIA WHEELCHAIR WITH ALL PERSONAL BELONGINGS. PATIENT DISCHARGED TO HOME IN STABLE CONDITION.
--- NOTE | 2021-02-04 17:25 | MORECARE ---
CASE MANAGEMENT DISCHARGE SUMMARY PATIENT: SHANTAL COOLEY UNIT: [id number] ADM DATE: 01/31/21 AGE: 75 : 47 SEX: F ROOM/BED: D.7542 AUTHOR: JOSH LILLY PHYSICIAN: REFERRING PHYSICIAN: KENNY CHRISTIANSON DO DATE OF SERVICE: 02/04/21 Case Management Discharge Planning Summary COMMENTS ENTERED DATE: 02/03/21 14:37 CT COMMENT TYPE: Discharge Planning REVIEWER: Jame Matamoros CM met with patient to complete DC plan and to evaluate needs. Patient lives independently alone with strong support. Patient stated that her person to notify is her father, . Patient stated that her home is safe and has electricity and running water. Patient stated that the home has 5 steps to enter and she is able to manage the steps without difficulty. Patient stated that she has no problems paying for medications and she fills her medications at [facility] in [place], [place]. Patient stated that her primary care physician is Dr. Hanks. At discharge, the patient plans to return home and feels this is a safe discharge. CM discussed availability of home health, rehab services, and medical equipment. Patient declined HHS, SNF, IPR, and DME. Patient voiced no other needs at this time and is satisfied with DC plan. DC IMM delivered, explained, signed by the patient, and placed in chart. Signed form also left with the patient. CM will continue to follow and will assist as needed with dc plans/needs. DCP REVIEW SUMMARY ANTICIPATED D/C DATE: 02/03/2021 EXPECTED LOS : 3 CASE STATUS: DCP Complete INITIAL REVIEW: 02/01/2021 INITIAL REVIEWER: Jame Matamoros FINAL DISCHARGE DISPOSITION: : FINAL REVIEWER: FINAL REVIEW DATE: DCP Focus Questions & Answers DCP Evaluation QUESTION: ANSWER Patient's ability to cope with chronic illness : d. No chronic illness Patient's current cognitive status: : *Oriented to person, place, situation, time and present Family / Caregiver's ability to cope with chronic illness: : a. Adequate (ability to meet patient's medical needs, ensures patient attends medical appts.) Patient and/or caregiver agree upon recommended discharge plan? : Yes Physical Status: : Independent with ADL's Family / Caregiver's ability to cope with chronic illness: : a. Adequate (ability to meet patient's medical needs, ensures patient attends medical appts.) Functional screen assessment: : Basic needs can adequately be met by self Does the patient have the ability to pay for or attain post discharge needs / services? : Yes Living Arrangements: : Home Alone with Support Is there a likelihood that the patient will require additional services to return to the preadmission environment? : No Equipment needed for post hospitalization: : None Baseline cognitive status: : *Oriented to person, place, situation, time and present Patient with capacity for self-care or can be cared for in same environment as prior to hospitalization? : Yes Physical environment modification needed / anticipated for discharge: : No Medication Management: : Patient states can afford medications Medication Management: : Patient states can read and understand medication labels Pharmacy name(s): : [facility] in [place], [place] Does Patient have transportation to get home and to follow-up medical appointments when discharged from the hospital? : Yes Would patient like to participate in any Care Coordination programs (if applicable): : Not applicable Does the patient have electricity at home? : Yes Does the patient have running water in their house? : Yes Equipment in use: : None Mental health screen: : No mental health history DCP Re-evaluation QUESTION: ANSWER Would patient like to participate in any Care Coordination programs (if applicable): : Not applicable PATIENT: SHANTAL COOLEY ENCOUNTER: [id number] MEDICAL RECORD#: [id number] ADMISSION DATE: 01/31/2021 DISCHARGE DATE: 02/03/2021 ATTENDING MD: BOBO: 1946- AGE: 75 MARITAL STATUS: S DC PLAN ID: [id number] FACILITY: [facility] PRINTED ON: 02/04/21 17:25 CT All edits/amendments must be made on the electronic document DICTATION DATE: 02/04/211724 SUPERVISOR PASTRY: JEFF 02/04/21 172 RPT#: [id number] DC DATE:02/03/21 STATUS: DIS IN [facility] [address] [place] [address] END OF REPORT
== END 2021-02-03 17:17 | disposition home or self-care (01) | DRG 377 ==
LOC: D.ER 19:44 → D.M2 23:55 → D.MS 23:55 → D.EDHOLD 23:55 → D.MS 02-01 00:05 → D.M2 02-01 11:52
PROVIDERS: Emergency Medicine; Internal Medicine; Surgery; ADMIT Internal Medicine; ATTEND Internal Medicine
PROC: 0DJD8ZZ Inspection of Lower Intestinal Tract, Via Natural or Artificial Opening Endoscopic (ICD-10-PCS; 2021-02-02)
PROC: 0DJ08ZZ Inspection of Upper Intestinal Tract, Via Natural or Artificial Opening Endoscopic (ICD-10-PCS; principal; 2021-02-02 14:30)
DX: K92.2 Gastrointestinal hemorrhage, unspecified (principal); N18.6 End stage renal disease; I12.0 Hypertensive chronic kidney disease with stage 5 chronic kidney disease or end stage renal disease; N39.0 Urinary tract infection, site not specified; Z99.2 Dependence on renal dialysis; D63.1 Anemia in chronic kidney disease; M19.90 Unspecified osteoarthritis, unspecified site; E16.2 Hypoglycemia, unspecified; Z79.01 Long term (current) use of anticoagulants; Z79.02 Long term (current) use of antithrombotics/antiplatelets; Z79.4 Long term (current) use of insulin; E11.22 Type 2 diabetes mellitus with diabetic chronic kidney disease